=== PATIENT | female | born 1980 | race Caucasian/White ===

== ENCOUNTER 2023-07-27 17:35 | Emergency (ER) | payer BC, SELFPAY ==
[2023-07-27 17:36] VITALS: BP 145/78; PULSE 71; RESP 18; TEMP 36.1; O2SAT 98; BMI 26.0
[2023-07-27 18:22] VITALS: RESP 18; O2SAT 99
--- NOTE | 2023-07-27 18:24 | ED.RN ---
pt c/o of dizziness off and on today. pt also c/o of shortness of breath stating I feel like my face has so much pressure
[2023-07-27 18:25] LABS: Absolute Lymphocyte Count 2.35 X10^3/uL (0.83-4.51); Absolute Neutrophil Count 9.6 X10^3/uL (2.0-7.7); Basophil# 0.05 X10^3/uL; Basophil% 0.4 % (0-1); Eosinophil# 0.07 X10^3/uL; Eosinophils% 0.6 % (0-5); Hematocrit 42.8 % (37-47); Hemoglobin 14.4 g/dL (12.0-15.0); Lymphocyte # 2.35 X10^3/ul (0.83-4.51); Lymphocyte % 18.7 % (19-41); Mean Corp Hgb Conc 33.6 g/dL (32-36); Mean Corpuscular Hgb 29.9 pg (27.0-32.0); Mean Corpuscular Volume 88.8 fL (81-99); Mean Platelet Vol. 9.9 fl (6.2-12.0); Monocyte# 0.48 X10^3/uL; Monocyte% 3.8 % (0-10); NRBC Flagged by Analyzer 0 % (0-5); Neutrophil # 9.58 X10^3/uL (2.7-7.7); Neutrophil % 75.9 % (47-70); Platelet Count 293 K/mm3 (150-450); RBC Distribution Width CV 12.1 % (11.6-14.6); RBC Distribution Width SD 39.2 fl (35.1-43.9); Red Blood Count 4.82 M/mm3 (4.2-5.4); White Blood Count 12.6 K/mm3 (4.4-11.0)
[2023-07-27 18:40] LABS: Anion Gap 12 (5-15); BUN 18 mg/dL (7-18); BUN/Creat Ratio 22.9 RATIO (10-20); Calcium,Total 9.4 mg/dL (8.5-10.1); Chloride 101 mmol/L (98-107); Creatinine, Serum 0.79 mg/dL (0.55-1.02); EST Glomerular Filtration Rate 85 mL/min (>60); Est Glom Filt Rate - Afr Amer 102 mL/min (>60); Estimated Creatinine Clearance 93.97 ml/min; Glucose 128 mg/dL (74-106); Potassium 3.7 mmol/L (3.5-5.1); Sodium Level 135 mmol/L (136-145)
--- NOTE | 2023-07-27 18:43 | EDS_ITS ---
HPI <AUTUMN Kinsey - Last Filed: 07/27/23 21:22> History of Present Illness Chief Complaint: Shortness of Breath Narrative Narrative: Patient presenting today due to lightheadedness and occasional shortness of breath that she has had over the past several days. There have been a few occasions where she felt like she was going to pass out. She also reports that today her face has felt tingly intermittently. She is currently taking a prednisone taper for poison oak. She went to her PCPs office on Friday and had an additional Kenalog shot. She thinks that since around the time of having that shot she has felt, off. She denies any personal cardiac history, fevers, chills, chest pain, abdominal pain, nausea, and vomiting. PE Risk Factors: Negative for Cancer, OCP + Smoking + > 35, Prior DVT or PE, Recent immobilization, Recent surgery or Recent travel PFSH <AUTUMN Kinsey - Last Filed: 07/27/23 21:22> [facility] Home Medications amoxicillin 500 mg capsule 500 mg PO Q8H ##30 05/04/13 [Rx Last Taken Unknown] vits,calcium no.78-iron fumarate-folic acid 29 mg-1 mg tablet (Prenatabs FA) 1 tab PO DAILY 05/04/13 [History Last Taken Unknown] Allergy/AdvReac Type Severity Reaction Status Date / Time aspirin AdvReac Vomiting Verified 07/27/23 17:36 Social History Smoking Status: Former smoker ROS <AUTUMN Kinsey - Last Filed: 07/27/23 21:22> ROS ED Constitutional Constitutional ED: Denies chills or fever(s) Cardiovascular Cardiovascular: Denies chest pain or palpitations Respiratory/Chest Respiratory/Chest: Reports dyspnea; Denies cough Gastrointestinal Gastrointestinal: Denies abdominal pain, nausea or vomiting Musculoskeletal Musculoskeletal: Denies arthralgias or myalgias Integumentary Denies rash Neurologic Neurologic: Denies weakness EXAM <AUTUMN Kinsey - Last Filed: 07/27/23 21:22> Physical Exam Const Vital Signs: 07/27/23 17:36 07/27/23 18:22 07/27/23 18:22 Temperature 97 F L Temperature Source Temporal Pulse Rate 71 Respiratory Rate 18 18 Respiratory Effort Respiratory Depth Respiratory Pattern Blood Pressure 145/78 H Blood Pressure Mean 100 Pulse Ox 98 99 Oxygen Delivery Method Room Air Room Air Room Air 07/27/23 18:22 07/27/23 19:33 07/27/23 20:42 Temperature 97.9 F Temperature Source Pulse Rate 59 L 59 L Respiratory Rate 16 25 H Respiratory Effort Short of Breath Respiratory Depth Normal Respiratory Pattern Normal Blood Pressure 136/86 H 124/86 H Blood Pressure Mean 102 98 Pulse Ox 98 97 Oxygen Delivery Method Room Air Room Air Positive well nourished, well developed and no apparent distress General Appearance ED: well developed HEENT Reports normocephalic and head/scalp atraumatic Mouth ED: Yes moist mucous membranes normal Eyes PERRL and EOMs intact bilaterally Neck full ROM and supple Chest Wall inspection of chest normal Resp normal respiratory effort and clear to auscultation bilaterally Cardio regular rate and regular rhythm GI soft to palpation, non-tender, non-distended and no masses Back/Spine normal ROM and normal to inspection Extremity normal to inspection and full ROM Neuro oriented x3, CN's II-XII intact bilaterally, moves all extremities, no focal motor deficits and no sensory deficits noted Sensorium / Orientation: awake and alert Psych mental status grossly normal and thought process normal Skin Skin Narrative: Faint erythemic rash to the bilateral thighs <Dr. Marcus Gamboa DO - Last Filed: 07/27/23 22:10> Physical Exam Const Vital Signs: 07/27/23 17:36 07/27/23 18:22 07/27/23 18:22 Temperature 97 F L Temperature Source Temporal Pulse Rate 71 Respiratory Rate 18 18 Respiratory Effort Respiratory Depth Respiratory Pattern Blood Pressure 145/78 H Blood Pressure Mean 100 Pulse Ox 98 99 Oxygen Delivery Method Room Air Room Air Room Air 07/27/23 18:22 07/27/23 19:33 07/27/23 20:42 Temperature 97.9 F Temperature Source Pulse Rate 59 L 59 L Respiratory Rate 16 25 H Respiratory Effort Short of Breath Respiratory Depth Normal Respiratory Pattern Normal Blood Pressure 136/86 H 124/86 H Blood Pressure Mean 102 98 Pulse Ox 98 97 Oxygen Delivery Method Room Air Room Air MDM <Laine Apodaca PA - Last Filed: 07/27/23 21:22> MDM MDM Narrative Medical decision making narrative: Patient is well-appearing and in no acute distress, her vitals are unremarkable. She is concerned that the prednisone could be making her feel this way, she noticed the symptoms after she received the Kenalog shot on Friday. Cardiac workup obtained. She has nonspecific leukocytosis which could be attributed to the prednisone. I did evaluate her rash, it is faint and does seem to be clearing to her legs. No signs of infection. Chest x-ray negative for any acute findings. She is PERC negative, low suspicion for PE. She is almost done with her prednisone and has 2 more days. I did encourage that she follow-up with her PCP, return instructions discussed. She will be discharged home in stable condition. Lab Data Attestation: I reviewed the patient's lab results. Lab results narrative: WBC 12.6, sodium 135 Labs: Laboratory Results - last 24 hr 07/27/23 18:18 WBC 12.6 H RBC 4.82 Hgb 14.4 Hct 42.8 MCV 88.8 MCH 29.9 MCHC 33.6 RDW Std Deviation 39.2 RDW Coeff of [place] 12.1 Plt Count 293 MPV 9.9 Immature Gran % (Auto) 0.600 Neut % (Auto) 75.9 H Lymph % (Auto) 18.7 L Will % (Auto) 3.8 Eos % (Auto) 0.6 Baso % (Auto) 0.4 Absolute Neuts (auto) 9.6 H Absolute Lymphs (auto) 2.35 Nucleated RBC % 0 Sodium 135 L Potassium 3.7 Chloride 101 Carbon Dioxide 22.0 Anion Gap 12 BUN 18 Creatinine 0.79 Estim Creat Clear Calc 93.97 Est GFR (MDRD) Af Amer 102 Est GFR (MDRD) Non-Af 85 BUN/Creatinine Ratio 22.9 H Glucose 128 H Calcium 9.4 Troponin I High Sens < 3 L Radiography X-Ray: Read by ED Physician Diagnostic Testing: Clinical Impression(s) from Imaging Studies Chest X-Ray 07/27/23 19:05 IMPRESSION: No radiographic evidence of acute cardiopulmonary disease. Electronically Signed: Lorne Alvarez MD at 19:37 EDT , EKG Initial EKG: Comments: 57 bpm, sinus bradycardia, no ST elevation, reviewed and interpreted by attending ED physician <Dr. Marcus Gamboa, DO - Last Filed: 07/27/23 22:10> [facility] Narrative Medical decision making narrative: Patient is well-appearing and in no acute distress, her vitals are unremarkable. She is concerned that the prednisone could be making her feel this way, she noticed the symptoms after she received the Kenalog shot on Friday. Cardiac workup obtained. She has nonspecific leukocytosis which could be attributed to the prednisone. I did evaluate her rash, it is faint and does seem to be clearing to her legs. No signs of infection. Chest x-ray negative for any acute findings. She is PERC negative, low suspicion for PE. She is almost done with her prednisone and has 2 more days. I did encourage that she follow-up with her PCP, return instructions discussed. She will be discharged home in stable condition. ED attending note: I evaluated the patient in conjunction with the KORIN. I agree with his/her statements and above findings. I have personally performed a face to face a ssessment of the patient and have reviewed the KORIN Note. I performed a substantive portion of the visit including all aspects of the following. I personally saw the patient performed chart review, physical exam, reviewed labs, imaging (if obtained), and formulated a treatment and management plan. This note was generated with eTelemetry dictation software. It may contain incorrect words, spelling, and punctuation that were not noted in review of the chart prior to signing. Lab Data Labs: Laboratory Results - last 24 hr 07/27/23 18:18 WBC 12.6 H RBC 4.82 Hgb 14.4 Hct 42.8 MCV 88.8 MCH 29.9 MCHC 33.6 RDW Std Deviation 39.2 RDW Coeff of [place] 12.1 Plt Count 293 MPV 9.9 Immature Gran % (Auto) 0.600 Neut % (Auto) 75.9 H Lymph % (Auto) 18.7 L Will % (Auto) 3.8 Eos % (Auto) 0.6 Baso % (Auto) 0.4 Absolute Neuts (auto) 9.6 H Absolute Lymphs (auto) 2.35 Nucleated RBC % 0 Sodium 135 L Potassium 3.7 Chloride 101 Carbon Dioxide 22.0 Anion Gap 12 BUN 18 Creatinine 0.79 Estim Creat Clear Calc 93.97 Est GFR (MDRD) Af Amer 102 Est GFR (MDRD) Non-Af 85 BUN/Creatinine Ratio 22.9 H Glucose 128 H Calcium 9.4 Troponin I High Sens < 3 L Radiography Diagnostic Testing: Clinical Impression(s) from Imaging Studies Chest X-Ray 07/27/23 19:05 IMPRESSION: No radiographic evidence of acute cardiopulmonary disease. Electronically Signed: Lorne Alvarez MD at 19:37 EDT Reading Location ID and State: [facility] / [place] , Service support , Discharge Plan Triage Chief Complaint: Shortness of Breath ED Midlevel Provider: Laine Apodaca ED Provider: Marcus Gamboa Dx/Rx/DC Orders Clinical Impression: Shortness of breath, Light-headedness Instructions: ED Dizziness, Uncertain Cause, ED Dyspnea Prescriptions: No Action vit,[id number] [Prenatabs FA] 1 TABLET tablet 1 tab PO DAILY amoxicillin 500 MG capsule 500 mg PO Q8H Qty: 30 0RF Primary Care Provider: Care Physician,No Primary Referrals: Care Physician,No Primary [Primary Care Provider] - Activity Restrictions/Additional Instructions: Follow-up with your PCP and return for any worsening of your symptoms. Disposition Disposition: Home, Self Care Discharge Date/Time: 07/27/23 20:45
--- NOTE | 2023-07-27 19:05 | RAD_ITS ---
EXAM: XR CHEST, 1 VIEW CLINICAL INDICATION: SOB TECHNIQUE: Frontal view of the chest. COMPARISON: No relevant prior studies available. FINDINGS: LUNGS AND PLEURAL SPACES: Unremarkable. No consolidation or edema. No pneumothorax. No effusion. HEART: Unremarkable. Cardiac silhouette not enlarged. MEDIASTINUM: Central airways and mediastinal contour are unremarkable. BONES/JOINTS: Unremarkable. No acute fracture. SOFT TISSUES: Unremarkable. RAD/Chest 1 View (Portable) IMPRESSION: No radiographic evidence of acute cardiopulmonary disease. Electronically Signed: Lorne Alvarez MD at 19:37 EDT ,
[2023-07-27 19:33] VITALS: BP 136/86; PULSE 59; RESP 16; O2SAT 98
[2023-07-27 20:06] LABS: Troponin-I HS < 3 pg/mL (3.0-54.0)
[2023-07-27 20:42] VITALS: BP 124/86; PULSE 59; RESP 25; TEMP 36.6; O2SAT 97
== END 2023-07-27 20:45 | disposition home or self-care (01) ==
PROVIDERS: Physician Assistant; Emergency Provider Emergency Medicine; Visit Provider Emergency Medicine
DX: R06.02 Shortness of breath (principal); Z87.891 Personal history of nicotine dependence; R42 Dizziness and giddiness
CPT/HCPCS: 71045; 80048; 84484; 85025; 93005; 99283; A4216

== ENCOUNTER 2024-11-20 21:14 | Emergency (ER) | payer BC, SELFPAY ==
[2024-11-20 21:15] VITALS: BP 148/81; PULSE 77; RESP 20; TEMP 35.8; O2SAT 99; BMI 25.4
--- OUTSIDE RECORDS SUMMARY | 2024-11-20 21:56 | XMS RPT_ITS | CCD ---
Author Organization [facility] ion Partnership [facility] Care Team Providers Care Oyster Worker Name Role Phone SHAI DO, DR BRAD Healy Primary Care Physician Shai DO, Brad Brambila Primary Care Provider SHAI DO, DR BRAD Healy Primary Care Physician SHAI DO, DR BRAD Healy Primary Care Physician Shai DO, Brad Brambila Primary Care Provider SHAI, BRAD BRAMBILA Primary Care Unavailable Marcus Gamboa Attending Unavailable Care Physician, No Primary Primary Care Unava COURTNEY Trevizo Attending Unavailable SHAI DO, DR BRAD Healy Primary Care Unavailshun e FERNIE RUBIO DO Attending Unavailab le SHAI DO, DR BRAD Healy Primary Care Unavailabl e FERNIE RUBIO DO Attending Unavailab le SHAI DO, DR BRAD Healy Primary Care Unavailabl e SHAI DO, DR BRAD Healy Primary Care UnavailPOP Das MD Attending Unavailable SHAI DO, DR BRAD Healy Primary Care Unavailabl e SHEROCK FERNIE CASTANEDA Attending Unavailab le Allergies Allergy Classification Reported Allergen(s) Allergy Type Date of Onset Reaction(s) Facility (11 sources) Aspirin; Translations: [aspirin] Drug Allergy 01-10-2016 [facility] (1 source) Aspirin Drug Allergy 07-27-2023 [facility] Repository Medications Current Medications Medication Drug Class(es) Dates Sig (Normalized) Sig (Original) acetaminophen 325 mg / oxyCODONE hydrochloride 5 mg oral tablet (1 source) Opioid Agonist Start: 12-04-2023 End: 12-06-2023 take 1 tablet by mouth every four hours as needed for pain Percocet 5 mg-325 mg oral tablet Dose = 1 tab(s), Oral, q4h, PRN for pain, X 2 day(s), # 10 tab(s), 0 Refill(s), Pharmacy: [facility]/pharmacy #[id number], Status post endometrial ablation, 167.6, cm, 12/04/23 7:12:00 EDT, Height, 72, kg, 12/04/23 7:12:00 EDT, Dosing Weight Start Date: 12/04/23 Stop Date: 12/06/23 Status: Ordered amoxicillin 500 mg oral capsule (1 source) Penicillin-class Antibacterial Start: 05-04-2013 take 500 mg by mouth every eight hours Amoxicillin Active 500 MG PO Q8H May 04, 2013 1:00am amoxicillin 875 mg / clavulanate 125 mg oral tablet (1 source) Penicillin-class Antibacterial Start: 05-07-2022 End: 05-14-2022 take 1 tablet by mouth twice daily amoxicillin-clavu lanic acid (AUGMENTIN) 875-125 mg per tablet Take 1 tablet by mouth twice daily for 7 days. 14 tablet 0 05/07/2022 05/14/2022 Active Comment on above: Take 1 tablet by dakota twice daily for 7 days. 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 40 capsule 0 01/12/2019 Active Comment on above: Take 1 capsule by mo ut three times daily as needed. Ethinyl Estradiol / Ferrous fumarate / Norethindrone (2 sources) Estrogen Start: 04-17-2022 take 1 tablet by mouth once daily BECK 24 FE 1 mg-20 mcg (24)/75 mg (4) take 1 tablet by mouth daily --OKAY TO SKIP PLACEBO TALBETS AND RESTART THE NEXT PACK ON DAY 24 0 04/17/2022 Active Comment on above: take 1 tablet by dakota th daily --OKAY TO SKIP PLACEBO TALBETS AND RESTART THE NEXT PACK ON DAY 24 12 hr guaiFENesin 600 mg extended release oral tablet (2 sources) Start: 01-12-2019 take 2 tablets by mouth twice daily guaiFENesin (MUCINEX) 600 mg 12 hr tablet Indications: Viral URI Take 2 tablets by mouth twice daily. 30 tablet 0 01/12/2019 Active Comment on above: Take 2 tablets by mo ut twice daily. ibuprofen 600 mg oral tablet (1 source) Nonsteroidal Anti-inflammatory Drug Start: 12-04-2023 ibuprofen 600 mg oral tablet Dose : 600 mg = 1 tab(s), Oral, QID, PRN as needed for pain, # 40 tab(s), 1 Refill(s), Pharmacy: [facility]/pharmacy #[id number], 167.6, cm, 12/04/23 7:12:00 EDT, Height, kg, 12/04/23 7:12:00 EDT, Dosing Weight Start Date: 12/04/23 Status: Ordered lidocaine hydrochloride 20 mg/ml mucous membrane topical solution (2 sources) Antiarrhythmic, Amide Local Anesthetic Start: 01-12-2019 lidocaine viscous (LIDOCAINE VISCOUS) 2 % solution Indications: Sore throat Gargle and spit 10-15mLs every 3-4 hours as need for throat discomfort. 120 mL 0 01/12/2019 Active Comment on above: Gargle and spit 10-1 5mLs every 3-4 hours as need for throat discomfort. predniSONE 10 mg oral tablet (2 sources) Start: 07-22-2023 predniSONE 10 mg oral tablet Dose : 10 mg = 1 tab(s), 0 Refill(s) Start Date: 07/22/23 Status: Ordered Start: 07-17-2023 End: 07-29-2023 predniSONE (DELTASONE) 10 mg tablet Indications: Rhus dermatitis Take 4 tabs daily x 3 days, then 3 tabs x 3 days, 2 tabs x 3 days, then 1 tab x3 days with food. 30 tablet 0 07/17/2023 07/29/2023 Active Vkrmkcjk-Vx-Rcx-Fe-FA ORAL Tab (2 sources) Start: 07-12-2006 take 1 tablet by mouth once daily Pdexkmrd-Nm-Vvb-Fe-FA ORAL Tab TAKE ONE DAILY 0 07/12/2006 Active Comment on above: TAKE ONE DAILY Vit,Syzz19-Jiog-Qudnr (Prenatabs Fa ) 1 TABLET tablet (1 source) Start: 05-04-2013 take 1 tablet by mouth once daily Vit,Gkdw41-Zoyo-Epghn (Prenatabs Fa ) 1 TABLET tablet Active 1 TABLET PO DAILY May 04, 2013 1:00am triamcinolone acetonide 1 mg/ml topical cream (4 sources) Corticosteroid Start: 07-22-2023 triamcinolone 0.1% topical cream Apply 1 morena, APPLY SPARINGLY TO AFFECTED AREAS 3 TIMES DAILY FOR 10 DAYS FOR RASH OR ITCH Start Date: 07/22/23 Status: Ordered Start: 07-17-2023 End: 07-27-2023 triamcinolone acetonide (NICHELLE ALOG) 0.1 % cream Indications: Rhus dermatitis Apply 1 application to affected area three times a day for 10 days. Apply sparingly to area for rash/itching. 80 g 0 07/17/2023 07/27/2023 Active Start: 11-25-2017 triamcinolone (KENALOG) 0.025 % cream Indications: Dermatitis due to plants, including poison mesha, sumac, and oak Apply 1 application to affected area twice daily. 30 g 0 11/25/2017 Active Comment on above: Apply 1 application to affected area twice daily. Problems Active Problems Problem Classification Problem Date Documented Date Episodic/Chronic Allergic reactions (1 source) Contact dermatitis due to Genus Toxicodendron; Translations: [Unspecified contact dermatitis due to plants, except food] 07-17-2023 Episodic Conditions associated with dizziness or vertigo (1 source) Lightheadedness; Translations: [Dizziness and giddiness] 07-27-2023 Episodic Essential hypertension (1 source) Essential hypertension; Translations: [Essential (primary) hypertension] Onset: 07-07-2022 Chronic Other connective tissue disease (1 source) Muscle pain; Translations: [Myalgia, unspecified site] Onset: 07-07-2022 Episodic Other female genital disorders (1 source) Abnormal uterine bleeding; Translations: [Abnormal uterine and vaginal bleeding, unspecified] Onset: 12-04-2023 Chronic Other lower respiratory disease (1 source) Dyspnea; Translations: [Shortness of breath] 07-27-2023 Episodic Other lower respiratory disease (1 source) Shortness of breath; Translations: [Shortness of breath] Onset: 07-31-2023 Episodic Other upper respiratory infections (1 source) Chronic sinusitis; Translations: [Chronic sinusitis, unspecified] Chronic Other upper respiratory infections (1 source) Sore throat symptom; Translations: [Acute pharyngitis, unspecified] Episodic Residual codes; unclassified (1 source) Past history of procedure; Translations: [Other specified postprocedural states] Onset: 12-04-2023 Episodic Past or Other Problems Problem Classification Problem Date Documented Da te Episodic/Chronic Other and delivery including normal (2 sources) Normal ; Translations: [Encounter for supervision of other normal , unspecified trimester] Onset: 07-12-2006 07-12-2006 Episodic Results Test Name Value Interpretation Reference Range Facility .Auto Diffon 12-04-2023 Basophil, Absolute 0.0 10 3/mcL Normal 0.0-0.2 [facility] Comment on above: Performed By: #### A GUSTAVO, CBC, GFR, BMP, ADIFF #### [address] [address] Basophils/100 WBC (Bld) 0.7 % Normal 0.0-2.5 [facility] Comment on above: Performed By: #### A GUSTAVO, CBC, GFR, BMP, ADIFF #### [facility] [address] [place], [place] [address] Eosinophil, Absolute 0.1 10 3/mcL Normal 0.0-0.4 [facility] Comment on above: Performed By: #### A GUSTAVO, CBC, GFR, BMP, ADIFF #### [facility] [address] [place], [place] [address] Eosinophils/100 WBC (Bld) 1.7 % Normal 0.0-7.0 [facility] Comment on above: Performed By: #### A GUSTAVO, CBC, GFR, BMP, ADIFF #### [address] [address] Lymphocyte, Absolute 2.2 10 3/mcL Normal 0.8-3.9 [facility] Comment on above: Performed By: #### A GUSTAVO, CBC, GFR, BMP, ADIFF #### [address] [address] Lymphocytes/100 WBC (Bld) 35.1 % Normal 10.0-50.0 [facility] Comment on above: Performed By: #### A GUSTAVO, CBC, GFR, BMP, ADIFF #### [address] [address] Monocyte, Absolute 0.5 10 3/mcL Normal 0.2-1.0 [facility] Comment on above: Performed By: #### A GUSTAVO, CBC, GFR, BMP, ADIFF #### [address] [address] Monocytes/100 WBC (Bld) 7.5 % Normal 1.7-13.0 [facility] Comment on above: Performed By: #### A GUSTAVO, CBC, GFR, BMP, ADIFF #### [address] [address] Neutrophils/100 WBC (Bld) 55.0 % Normal 37.0-80.0 [facility] Comment on above: Performed By: #### A GUSTAVO, CBC, GFR, BMP, ADIFF #### [address] [address] .GFRon 12-04-2023 GFR 89 ml/min/1.73sqm Normal [facility] Comment on above: Result Comment: GFR Population mean for , Non- Americans Ages 20-29 = 116 mL/min/1.73 sq.m. Ages 30-39 = 107 mL/min/1.73 sq.m. Ages 40-49 = 99 mL/min/1.73 sq.m. Ages 50-59 = 93 mL/min/1.73 sq.m. Ages 60-69 = 85 mL/min/1.73 sq.m. Ages 70+ = 75 mL/min/1.73 sq.m. Chronic Kidney Disease: Less than 60 mL/min/1.73 square meters End Stage Renal Disease: Less than 15 mL/min/1.73 square meters Performed By: #### A GUSTAVO, CBC, GFR, BMP, ADIFF #### [address] [address] GFR Non- 74 ml/min/1.73sqm Normal [facility] Comment on above: Result Comment: GFR Population mean for , Non- Americans Ages 20-29 = 116 mL/min/1.73 sq.m. Ages 30-39 = 107 mL/min/1.73 sq.m. Ages 40-49 = 99 mL/min/1.73 sq.m. Ages 50-59 = 93 mL/min/1.73 sq.m. Ages 60-69 = 85 mL/min/1.73 sq.m. Ages 70+ = 75 mL/min/1.73 sq.m. Chronic Kidney Disease: Less than 60 mL/min/1.73 square meters End Stage Renal Disease: Less than 15 mL/min/1.73 square meters Performed By: #### A GUSTAVO, CBC, GFR, BMP, ADIFF #### [address] [address] .NEUABSon 12-04-2023 Neutrophil, Absolute 3.5 10 3/mcL Normal 2.9-6.2 [facility] Comment on above: Performed By: #### A GUSTAVO, CBC, GFR, BMP, ADIFF #### [address] [address] BMPon 12-04-2023 BUN/Creatinine Ratio 21 ratio Normal 7-27 [facility] Comment on above: Performed By: #### A GUSTAVO, CBC, GFR, BMP, ADIFF #### [address] [address] Calcium [Mass/Vol] 9.1 mg/dL Normal 8.4-10.2 [facility] Comment on above: Performed By: #### A GUSTAVO, CBC, GFR, BMP, ADIFF #### [address] [address] Chloride [Moles/Vol] 104 mmol/L Normal 98-107 [facility] Comment on above: Performed By: #### A GUSTAVO, CBC, GFR, BMP, ADIFF #### [address] [address] CO2 [Moles/Vol] 28 mmol/L Normal 22-29 [facility] Comment on above: Performed By: #### A GUSTAVO, CBC, GFR, BMP, ADIFF #### [address] [address] Creatinine [Mass/Vol] 0.84 mg/dL Normal 0.55-1.02 [facility] Comment on above: Result Comment: Test ing performed on Siemens Dimension EXL analyzer using a modified kinetic Krish technique. Performed By: #### A GUSTAVO, CBC, GFR, BMP, ADIFF #### [address] [address] Electrolyte Balance 6.0 mEq/L Normal 4.0-15.0 [facility] Comment on above: Performed By: #### A GUSTAVO, CBC, GFR, BMP, ADIFF #### [address] [address] Glucose [Mass/Vol] 87 mg/dL Normal 70-105 [facility] Comment on above: Performed By: #### A GUSTAVO, CBC, GFR, BMP, ADIFF #### [address] [address] Potassium [Moles/Vol] 3.9 mmol/L Normal 3.5-5.1 [facility] Comment on above: Performed By: #### A GUSTAVO, CBC, GFR, BMP, ADIFF #### [address] [address] Sodium [Moles/Vol] 138 mmol/L Normal 136-145 [facility] Comment on above: Performed By: #### A GUSTAVO, CBC, GFR, BMP, ADIFF #### [address] [address] Urea nitrogen [Mass/Vol] 18 mg/dL Normal 7-18 [facility] Comment on above: Performed By: #### A GUSTAVO, CBC, GFR, BMP, ADIFF #### [address] [address] CBCon 12-04-2023 Erythrocyte distribution width (RBC) [Ratio] 12.6 % Normal 11.5-14.5 [facility] Comment on above: Performed By: #### A GUSTAVO, CBC, GFR, BMP, ADIFF #### [address] [address] Hematocrit (Bld) [Volume fraction] 40.5 % Normal 37.0-47.0 [facility] Comment on above: Performed By: #### A GUSTAVO, CBC, GFR, BMP, ADIFF #### [place] [address] Hgb 13.6 G/dL Normal 12.0-16.0 [facility] Comment on above: Performed By: #### A GUSTAVO, CBC, GFR, BMP, ADIFF #### [address] [address] MCH (RBC) [Entitic mass] 30.5 pg Normal 27.0-31.2 [facility] Comment on above: Performed By: #### A GUSTAVO, CBC, GFR, BMP, ADIFF #### [place] [address] MCHC 33.7 G/dL Normal 33.0-37.0 [facility] Comment on above: Performed By: #### A GUSTAVO, CBC, GFR, BMP, ADIFF #### [address] [address] MCV (RBC) [Entitic vol] 90.6 fL Normal 80.0-94.0 [facility] Comment on above: Performed By: #### A GUSTAVO, CBC, GFR, BMP, ADIFF #### [place] [id number] Platelet 220 10 3/mcL Normal 130-400 [facility] Comment on above: Performed By: #### A GUSTAVO, CBC, GFR, BMP, ADIFF #### [place] [address] Platelet mean volume (Bld) [Entitic vol] 8.2 fL Normal 7.4-10.4 [facility] Comment on above: Performed By: #### A GUSTAVO, CBC, GFR, BMP, ADIFF #### [place] [address] RBC 4.47 10 6/mcL Normal 4.20-5.40 [facility] Comment on above: Performed By: #### A GUSTAVO, CBC, GFR, BMP, ADIFF #### [place] [address] WBC 6.4 10 3/mcL Normal 4.6-10.8 [facility] Comment on above: Performed By: #### A GSUTAVO, CBC, GFR, BMP, ADIFF #### [place] [address] LABORATORYOrdered By: SYSTEM SYSTEM on 12-04-2023 Basophils (Bld) [#/Vol] 0.0 103/mcL Normal 0.0 - 0.2 10^3/mcL AO Workflow SS Basophils/100 WBC (Bld) 0.7 % Normal 0.0 - 2.5 % AO Workflow SS Calcium [Mass/Vol] 9.1 mg/dL Normal 8.4 - 10. 2 mg/dL AO ADM SS Chloride [Moles/Vol] 104 mmol/L Normal 98 - 10 7 mmol/L AO ADM SS CO2 [Moles/Vol] 28 mmol/L Normal 22 - 29 mmol/L AO ADM SS Creatinine [Mass/Vol] 0.84 mg/dL Normal 0.55 - 1.02 mg/dL AO ADM SS Comment on above: Interpretive Data: T esting performed on Siemens Dimension EXL analyzer using a modified kinetic Krish technique. Electrolyte Balance 6.0 mEq/L Normal 4.0 - 15 .0 mEq/L AO ADM SS Eosinophil, Absolute 0.1 103/mcL Normal 0.0 - 0 .4 10^3/mcL AO Workflow SS Eosinophils/100 WBC (Bld) 1.7 % Normal 0.0 - 7.0 % AO Workflow SS Erythrocyte distribution width (RBC) [Ratio] 12.6 % Normal 11.5 - 14.5 % AO Workflow SS GFR/1.73 sq M.predicted among blacks MDRD (S/P/Bld) [Vol rate/Area] 89 ml/min/1.73sqm Invalid Interpretation Code AO Chemistry S Comment on above: Interpretive Data: GFR Population mean for , Non- Americans Ages 20-29 = 116 mL/min/1.73 sq.m. Ages 30-39 = 107 mL/min/1.73 sq.m. Ages 40-49 = 99 mL/min/1.73 sq.m. Ages 50-59 = 93 mL/min/1.73 sq.m. Ages 60-69 = 85 mL/min/1.73 sq.m. Ages 70+ = 75 mL/min/1.73 sq.m. Chronic Kidney Disease: Less than 60 mL/min/1.73 square meters End Stage Renal Disease: Less than 15 mL/min/1.73 square meters GFR/1.73 sq M.predicted among non-blacks MDRD (S/P/Bld) [Vol rate/Area] 74 ml/min/1.73sqm Invalid Interpretation Code AO Chemistry S Comment on above: Interpretive Data: GFR Population mean for , Non- Americans Ages 20-29 = 116 mL/min/1.73 sq.m. Ages 30-39 = 107 mL/min/1.73 sq.m. Ages 40-49 = 99 mL/min/1.73 sq.m. Ages 50-59 = 93 mL/min/1.73 sq.m. Ages 60-69 = 85 mL/min/1.73 sq.m. Ages 70+ = 75 mL/min/1.73 sq.m. Chronic Kidney Disease: Less than 60 mL/min/1.73 square meters End Stage Renal Disease: Less than 15 mL/min/1.73 square meters Glucose [Mass/Vol] 87 mg/dL Normal 70 - 105 mg/dL AO ADM SS Hematocrit (Bld) [Volume fraction] 40.5 % Normal 37.0 - 47.0 % AO Workflow SS Hemoglobin (Bld) [Mass/Vol] 13.6 G/dL Normal 12.0 - 16.0 G/dL AO Workflow SS Lymphocytes (Bld) [#/Vol] 2.2 103/mcL Normal 0.8 - 3.9 10^3/mcL AO Workflow SS Lymphocytes/100 WBC (Bld) 35.1 % Normal 10.0 - 50.0 % AO Workflow SS MCH (RBC) [Entitic mass] 30.5 pg Normal 27.0 - 31.2 pg AO Workflow SS MCHC 33.7 G/dL Normal 33.0 - 37.0 G/dL AO Workflow SS MCV (RBC) [Entitic vol] 90.6 fL Normal 80.0 - 94.0 fL AO Workflow SS Monocytes (Bld) [#/Vol] 0.5 103/mcL Normal 0.2 - 1.0 10^3/mcL AO Workflow SS Monocytes/100 WBC (Bld) 7.5 % Normal 1.7 - 13.0 % AO Workflow SS Neutrophils (Bld) [#/Vol] 3.5 103/mcL Normal 2.9 - 6.2 10^3/mcL AO Workflow SS Neutrophils/100 WBC (Bld) 55.0 % Normal 37.0 - 80.0 % AO Workflow SS Platelet mean volume (Bld) [Entitic vol] 8.2 fL Normal 7.4 - 10.4 fL AO Workflow SS Platelets (Bld) [#/Vol] 220 103/mcL Normal 130 - 400 10^3/mcL AO Workflow SS Potassium [Moles/Vol] 3.9 mmol/L Normal 3.5 - 5.1 mmol/L AO ADM SS RBC (Bld) [#/Vol] 4.47 106/mcL Normal 4.20 - 5.4 0 10^6/mcL AO Workflow SS Sodium [Moles/Vol] 138 mmol/L Normal 136 - 145 mmol/L AO ADM SS Urea nitrogen [Mass/Vol] 18 mg/dL Normal 7 - 18 mg/dL AO ADM SS Urea nitrogen/Creatinine [Mass ratio] 21 ratio Normal 7 - 27 ratio AO ADM SS WBC (Bld) [#/Vol] 6.4 103/mcL Normal 4.6 - 10.8 10^3/mcL AO Workflow SS LABORATORYOrdered By: Sumi Keating on 12-04-2023 HCG ( test) Ql Negative (12/04/23 7:17 AM) Normal AO Manual Urine SS test (u) int Not detected Invalid Interpretation Code AO Manual Urine SS PREGUon 12-04-2023 HCG ( test) Ql (U) Negative Normal [facility] Comment on above: Performed By: #### P REGU #### [place] [id number] [place], [place] [address] test (u) int Not detected Invalid Interpretation Code [facility] Comment on above: Performed By: #### P REGU #### [address] [address] US PELVIS NON-OB W/TRANSVAGI NALon 09-30-2023 US PELVIS NON-OB W/TRANSVAGINAL ORIGINAL EXAMINATION: TRANSVAGINAL PELVIC ULTRASOUND 09/29/2023 TECHNIQUE: Transvaginal and transabdominal pelvic ultrasound was performed. Images were reviewed and permanently stored in an archive. COMPARISON: Pelvic ultrasound 01/22/2019 HISTORY: ORDERING SYSTEM PROVIDED HISTORY: Reason for Exam: ABNORMAL UTERINE AND VAGINAL BLEEDING FINDINGS: Uterus: Uterus measures 8.5 x 5.4 x 6.6 cm and demonstrates normal myometrial echotexture. 1.6 x 1.3 x 1.3 cm fibroid seen at the fundus. Endometrial stripe: Endometrial stripe measures 5.2 mm and is within normal limits. Right Ovary: Right ovary measures 1.8 x 1.2 x 1.7 cm. There is normal Doppler flow. Left Ovary: Left ovary measures 5.1 x 3.6 x 5.6 cm. Large 4.5 x 3.5 x 4.5 cm anechoic cyst with no internal vascularity present. A thin septation is noted at its superoposterior aspect. There is normal Doppler flow. Free Fluid: Small amounts of free fluid are noted at the posterior cul de sac. IMPRESSION: 1. Fibroid uterus. 2. 4.5 cm left ovarian cyst. No further imaging is required. I have personally reviewed the images of this examination and agree with the resident's findings and interpretation. Interpreted by: Ld Saxena DO Preliminary Report By: Allan Vanegas Electronically signed By Ld Saxena DO Dictated Date: 09/30/2023 10:35:53 AM Prelim Date: 09/30/2023 11:30:40 AM Sign Date: 09/30/2023 11:30:40 AM Ordering Provider: COURTNEY Calderon [facility] ([place]) Absolute lymphocyte countOrd ered By: Marcus Gamboa on 07-27-2023 Lymphocytes Auto (Unsp spec) [#/Vol] 2.35 10*3/uL 0.83-4.51 [facility] Automated lymphocyte count a s percentage of total leukocytesOrdered By: Marcus Gamboa on 07-27-2023 Lymphocytes/100 WBC Auto (Unsp spec) 18.7 % 19-41 [facility] Basic Metabolic Profile (BMP )on 07-27-2023 BUN/CRE 22.9 RATIO High 10-20 [facility] Comment on above: Performed By: #### L [id number] #### [facility] [address] [place], [address] CA,Total 9.4 mg/dL Normal 8.5-10.1 [facility] Comment on above: Performed By: #### L [id number] #### [facility] [address] [place], [address] Chloride [Moles/Vol] 101 mmol/L Normal 98-107 [facility] Comment on above: Performed By: #### L [id number] #### [facility] [address] [place], [address] CO2 [Moles/Vol] 22.0 mmol/L Normal 21.0-32.0 [facility] Comment on above: Performed By: #### L [id number] #### [facility] [address] [place], [address] Creatinine [Mass/Vol] 0.79 mg/dL Normal 0.55-1.02 [facility] Comment on above: Result Comment: The validity of the calculated GFR GFRAA in patients over 70 years has not been determined. Clinical correlation is essential. Performed By: #### L [id number] #### [facility] [address] [place], [address] ECRCL 93.97 ml/min Normal [facility] Comment on above: Performed By: #### L [id number] #### [facility] [address] [place], [address] EST GFR - AA 102 mL/min Normal >60 [facility] Comment on above: Result Comment: Afri can [place]is[place] GFR Calc Performed By: #### L [id number] #### [facility] [address] [place], [address] GAP 12 Normal 5-15 [facility] Comment on above: Performed By: #### L [id number] #### [facility] [address] [place], [address] GFR/1.73 sq M.predicted among non-blacks MDRD (S/P/Bld) [Vol rate/Area] 85 mL/min/{1.73_m2} Normal >60 [facility] Comment on above: Result Comment: Non- GFR Calc Performed By: #### L [id number] #### [facility] [address] [place], [address] Glucose [Mass/Vol] 128 mg/dL High 74-106 [facility] Comment on above: Result Comment: Fast ing Glucose result greater than or equal to 126 mg/dL suggests DIABETES MELLITUS per A.D.A. criteria. Performed By: #### L 500.2500 #### [facility] [address] [place], [address] Potassium [Moles/Vol] 3.7 mmol/L Normal 3.5-5.1 [facility] Comment on above: Performed By: #### L [id number] #### [facility] [address] [place], [address] Sodium [Moles/Vol] 135 mmol/L Low 136-145 [facility] Comment on above: Performed By: #### L [id number] #### [facility] [address] [place], [address] Urea nitrogen [Mass/Vol] 18 mg/dL Normal 7-18 [facility] Comment on above: Performed By: #### L [id number] #### [facility] [address] [place], [address] Basophil percentageOrdered B y: Marcus Gamboa on 07-27-2023 Basophils/100 WBC (Bld) 0.4 % 0-1 [facility] Chloride [Moles/Vol] 101 mmol/L 98-107 [facility] Eosinophils/100 WBC (Bld) 0.6 % 0-5 [facility] [place] Glucose [Mass/Vol] 128 mg/dL 74-106 [facility] Comment on above: Fasting Glucose resu lt greater than or equal to 126 mg/dL suggests DIABETES MELLITUS per A.D.A. criteria. Hemoglobin (Bld) [Mass/Vol] 14.4 g/dL 12.0-15.0 [facility] Monocytes/100 WBC (Bld) 3.8 % 0-10 [facility] Neutrophils (Bld) [#/Vol] 9.6 10*3/uL 2.0-7.7 [facility] Neutrophils/100 WBC (Bld) 75.9 % 47-70 [facility] Potassium [Moles/Vol] 3.7 mmol/L 3.5-5.1 [facility] Sodium [Moles/Vol] 135 mmol/L 136-145 [facility] WBC (Bld) [#/Vol] 12.6 10*3/uL 4.4-11.0 [facility] CBC W/Diff, Automatedon 07-15 Absolute Lymph 2.35 X10 3/uL Normal 0.83-4.51 [facility] Comment on above: Performed By: #### L 100.0100 #### [facility] Laboratory [address] [place], [place], [address] Absolute Neut 9.6 X10 3/uL High 2.0-7.7 [facility] Comment on above: Performed By: #### L 100.0100 #### [facility] Laboratory [address] [place], [address] Basophils/100 WBC (Bld) 0.4 % Normal 0-1 [facility] Comment on above: Performed By: #### L 100.0100 #### [facility] [address] [place], [address] Eosinophils/100 WBC (Bld) 0.6 % Normal 0-5 [facility] Comment on above: Performed By: #### L 100.0100 #### [facility] Laboratory [address] [place], [address] Erythrocyte distribution width (RBC) [Ratio] 12.1 % Normal 11.6-14.6 [facility] Comment on above: Performed By: #### L 100.0100 #### [facility] Laboratory [facility], [address] Hematocrit (Bld) [Volume fraction] 42.8 % Normal 37-47 [facility] Comment on above: Performed By: #### L 100.0100 #### [facility] [address] [place], [address] Hemoglobin (Bld) [Mass/Vol] 14.4 g/dL Normal 12.0-15.0 [facility] Comment on above: Performed By: #### L 100.0100 #### [facility] [address] [place], [address] IG% 0.600 Normal 0.0-0.9 [facility] Comment on above: Result Comment: IG% - Immature Granulocytes (promyelocytes, myelocytes and metamyelocytes) > 1% indicates that a LEFT SHIFT is Present. Performed By: #### L 100.0100 #### [facility] [address] [place], [address] Lymphocytes/100 WBC (Bld) 18.7 % Low 19-41 [facility] Comment on above: Performed By: #### L 100.0100 #### [facility] [address] [place], [address] MCH (RBC) [Entitic mass] 29.9 pg Normal 27.0-32.0 [facility] Comment on above: Performed By: #### L 100.0100 #### [facility] Laboratory [address] [place], [address] MCHC (RBC) [Mass/Vol] 33.6 g/dL Normal 32-36 [facility] Comment on above: Performed By: #### L 100.0100 #### [facility] [address] [place], [address] MCV (RBC) [Entitic vol] 88.8 fL Normal 81-99 [facility] Comment on above: Performed By: #### L 100.0100 #### [facility] [address] [place], [address] Monocytes/100 WBC (Bld) 3.8 % Normal 0-10 [facility] Comment on above: Performed By: #### L 100.0100 #### [facility] [address] [place], [address] Neutrophils/100 WBC (Bld) 75.9 % High 47-70 [facility] Comment on above: Performed By: #### L 100.0100 #### [facility] [address] [place], [address] Nucleated RBC (Bld) [#/Vol] 0 10*3/uL Normal 0-5 [facility] Comment on above: Performed By: #### L 100.0100 #### [facility] [address] [place], [address] Platelet mean volume (Bld) [Entitic vol] 9.9 fL Normal 6.2-12.0 [facility] Comment on above: Performed By: #### L 100.0100 #### [facility] Laboratory [address] [place], [address] Platelets (Bld) [#/Vol] 293 10*3/uL Normal 150-450 [facility] Comment on above: Performed By: #### L 100.0100 #### [facility] [address] [place], [address] RBC (Bld) [#/Vol] 4.82 10*6/uL Normal 4.2-5.4 [facility] Comment on above: Performed By: #### L 100.0100 #### [facility] Laboratory [address] [place], [address] RDW SD 39.2 fl Normal 35.1-43.9 [facility] Comment on above: Performed By: #### L 100.0100 #### [facility] Laboratory [address] [place], [address] WBC (Bld) [#/Vol] 12.6 10*3/uL High 4.4-11.0 [facility] Comment on above: Performed By: #### L 100.0100 #### [facility] Laboratory [address] [place], [address] Chest 1 View (Portable)on Chest 1 View (Portable) [facility] Imaging Services [address] [place] [address] Chest 1 View (Portable) MR#: [id number] Acct: [id number] Name: MANJU SALDANA Rep #: [id number] : 1980 F 42 From: Lorne Leggett PCP: Care Physician,No Primary Status: REG ER Study: Chest 1 View (Portable) Date of Exam: 07/27/23 Exam# [id number] Ordering Dr: Laine Apodaca -[id number] EXAM: XR CHEST, 1 VIEW CLINICAL INDICATION: SOB TECHNIQUE: Frontal view of the chest. COMPARISON: No relevant prior studies available. FINDINGS: LUNGS AND PLEURAL SPACES: Unremarkable. No consolidation or edema. No pneumothorax. No effusion. HEART: Unremarkable. Cardiac silhouette not enlarged. MEDIASTINUM: Central airways and mediastinal contour are unremarkable. BONES/JOINTS: Unremarkable. No acute fracture. SOFT TISSUES: Unremarkable. RAD/Chest 1 View (Portable) IMPRESSION: No radiographic evidence of acute cardiopulmonary disease. Electronically Signed: Lorne Alvarez MD at 19:37 EDT , CC: AUTUMN Kinsey; No Primary Care Physician Banana Carrier: Signed Normal [facility] Determination of erythrocyte mean corpuscular volume (MCV)Ordered By: Marcus Gamboa on 07-27-2023 MCV (RBC) [Entitic vol] 88.8 fL 81-99 [facility] Emergency Department Summary on 07-27-2023 Emergency Department Summary [facility] Medical Records Department [address] [place] [address] Emergency Department Summary 07/27/23 MR#: [id number] Acct: [id number] Name: MANJU SALDANA Rep #: [id number] : 1980 42 From: Marcus Gamboa DO PCP: Care Physician,No Primary Status:DEP ER Location: ED HPI History of Present Illness Chief Complaint: Shortness of Breath Narrative Narrative: Patient presenting today due to lightheadedness and occasional shortness of breath that she has had over the past several days. There have been a few occasions where she felt like she was going to pass out. She also reports that today her face has felt tingly intermittently. She is currently taking a prednisone taper for poison oak. She went to her PCPs office on Friday and had an additional Kenalog shot. She thinks that since around the time of having that shot she has felt, off. She denies any personal cardiac history, fevers, chills, chest pain, abdominal pain, nausea, and vomiting. PE Risk Factors: Negative for Cancer, OCP + Smoking + > 35, Prior DVT or PE, Recent immobilization, Recent surgery or Recent travel PFSH PFSH Home Medications amoxicillin 500 mg capsule 500 mg PO Q8H ##30 05/04/13 [Rx Last Taken Unknown] vits,calcium no.78-iron fumarate-folic acid 29 mg-1 mg tablet (Prenatabs FA) 1 tab PO DAILY 05/04/13 [History Last Taken Unknown] Allergy/AdvReac Type Severity Reaction Status Date / Time aspirin AdvReac Vomiting Verified 07/27/23 17:36 Social History Smoking Status: Former smoker ROS ROS ED Constitutional Constitutional ED: Denies chills or fever(s) Cardiovascular Cardiovascular: Denies chest pain or palpitations Respiratory/Chest Respiratory/Chest: Reports dyspnea; Denies cough Gastrointestinal Gastrointestinal: Denies abdominal pain, nausea or vomiting Musculoskeletal Musculoskeletal: Denies arthralgias or myalgias Integumentary Denies rash Neurologic Neurologic: Denies weakness EXAM Physical Exam Const Vital Signs: 07/27/23 17:36 07/27/23 18:22 07/27/23 18:22 Temperature 97 F L Temperature Source Temporal Pulse Rate 71 Respiratory Rate 18 18 Respiratory Effort Respiratory Depth Respiratory Pattern Blood Pressure 145/78 H Blood Pressure Mean 100 Pulse Ox 98 99 Oxygen Delivery Method Room Air Room Air Room Air 07/27/23 18:22 07/27/23 19:33 07/27/23 20:42 Temperature 97.9 F Temperature Source Pulse Rate 59 L 59 L Respiratory Rate 16 25 H Respiratory Effort Short of Breath Respiratory Depth Normal Respiratory Pattern Normal Blood Pressure 136/86 H 124/86 H Blood Pressure Mean 102 98 Pulse Ox 98 97 Oxygen Delivery Method Room Air Room Air Positive well nourished, well developed and no apparent distress General Appearance ED: well developed HEENT Reports normocephalic and head/scalp atraumatic Mouth ED: Yes moist mucous membranes normal Eyes PERRL and EOMs intact bilaterally Neck full ROM and supple Chest Wall inspection of chest normal Resp normal respiratory effort and clear to auscultation bilaterally Cardio regular rate and regular rhythm GI soft to palpation, non-tender, non-distended and no masses Back/Spine normal ROM and normal to inspection Extremity normal to inspection and full ROM Neuro oriented x3, CN's II-XII intact bilaterally, moves all extremities, no focal motor deficits and no sensory deficits noted Sensorium / Orientation: awake and alert Psych mental status grossly normal and thought process normal Skin Skin Narrative: Faint erythemic rash to the bilateral thighs Physical Exam Const Vital Signs: 07/27/23 17:36 07/27/23 18:22 07/27/23 18:22 Temperature 97 F L Temperature Source Temporal Pulse Rate 71 Respiratory Rate 18 18 Respiratory Effort Respiratory Depth Respiratory Pattern Blood Pressure 145/78 H Blood Pressure Mean 100 Pulse Ox 98 99 Oxygen Delivery Method Room Air Room Air Room Air 07/27/23 18:22 07/27/23 19:33 07/27/23 20:42 Temperature 97.9 F Temperature Source Pulse Rate 59 L 59 L Respiratory Rate 16 25 H Respiratory Effort Short of Breath Respiratory Depth Normal Respiratory Pattern Normal Blood Pressure 136/86 H 124/86 H Blood Pressure Mean 102 98 Pulse Ox 98 97 Oxygen Delivery Method Room Air Room Air MDM MDM MDM Narrative Medical decision making narrative: Patient is well-appearing and in no acute distress, her vitals are unremarkable. She is concerned that the prednisone could be making her feel this way, she noticed the symptoms after she received the Kenalog shot on Friday. Cardiac workup obtained (more content not included)... Normal [facility] Erythrocyte distribution wid th ratioOrdered By: Marcus Gamboa on 07-27-2023 Erythrocyte distribution width (RBC) [Ratio] 12.1 % 11.6-14.6 [facility] Erythrocyte distribution wid th standard deviationOrdered By: Marcus Gamboa on 07-27-2023 Erythrocyte distribution width (RBC) [Entitic vol] 39.2 fL 35.1-43.9 [facility] Hematocrit Auto (Bld) [Volum e fraction]Ordered By: Marcus Gamboa on 07-27-2023 Hematocrit (Bld) [Volume fraction] 42.8 % 37-47 [facility] Immature granulocytes/100 WB C Auto (Bld)Ordered By: Marcus Gamboa on 07-27-2023 Immature granulocytes/100 WBC (Bld) 0.600 % 0.0-0.9 [facility] Comment on above: IG% - Immature Granu locytes (promyelocytes, myelocytes and metamyelocytes) > 1% indicates that a LEFT SHIFT is Present. L501.4020on 07-27-2023 TROPONIN-I HS < 3 Low 3.0-54.0 [facility] Comment on above: Order Comment: 'TROP ' Serial specimen #1, #2 or #3: 1 Result Comment: Daniela manuel Note: New Test Units and Gender Specific Reference Ranges. For more information see Policy Stat Procedure [place] High Sensitivity Troponin (TNIH) and attachments. Performed By: #### L 501.4020 #### [facility] Laboratory [address] [place], [address] Laboratory - Chemistry and C hemistry - challengeOrdered By: Marcus Gamboa on 07-27-2023 CO2 [Moles/Vol] 22.0 mmol/L 21.0-32.0 [facility] Urea nitrogen/Creatinine [Mass ratio] 22.9 mg/mg 10-20 [facility] Laboratory - Hematology and Cell countsOrdered By: Marcus Gamboa on 07-27-2023 MCH (RBC) [Entitic mass] 29.9 pg 27.0-32.0 [facility] MCHC (RBC) [Mass/Vol] 33.6 g/dL 32-36 [facility] Nucleated RBC/100 WBC (Bld) [Ratio] 0 % 0-5 [facility] Platelet mean volume (Bld) [Entitic vol] 9.9 fL 6.2-12.0 [facility] Platelets (Bld) [#/Vol] 293 10*3/uL 150-450 [facility] No Panel InformationOrdered By: Marcus Gamboa on 07-27-2023 Estimated Creatinine Clearance Calc 93.97 ml/min [facility] Estimated GFR (MDRD) Amer 102 mL/min >60 [facility] Comment on above: GFR Calc Estimated GFR (MDRD) Non-Af Amer 85 mL/min >60 [facility] Comment on above: Non- GFR Calc No Panel InformationOrdered By: Laine Apodaca on 07-27-2023 Troponin I High Sensitivity < 3 pg/mL 3.0-54.0 [facility] Comment on above: Please Note: New Selin t Units and Gender Specific Reference Ranges. For more information see Policy Stat Procedure [place] High Sensitivity Troponin (TNIH) and attachments. RBC Auto (Bld) [#/Vol]Ordere d By: Marcus Gamboa on 07-27-2023 RBC (Bld) [#/Vol] 4.82 10*6/uL 4.2-5.4 [facility] Serum or plasma calcium jose martin urement (mass/volume)Ordered By: Marcus Gamboa on 07-27-2023 Calcium [Mass/Vol] 9.4 mg/dL 8.5-10.1 [facility] Serum or plasma creatinine m easurement (mass/volume)Ordered By: Marcus Gamboa on 07-27-2023 Creatinine [Mass/Vol] 0.79 mg/dL 0.55-1.02 [facility] Comment on above: The validity of the calculated GFR & GFRAA in patients over 70 years has not been determined. Clinical correlation is essential. Serum or plasma urea nitroge n measurement (mass/volume)Ordered By: Marcus Gamboa on 07-27-2023 Urea nitrogen [Mass/Vol] 18 mg/dL 7-18 [facility] Thin prep Papanicolaou smear with manual screeningOrdered By: Marcus Gamboa on 07-27-2023 Thin prep Papanicolaou smear with manual screening 12 5-15 [facility] CNOVon 07-17-2023 CNOV Office Visit (UCTR) ---- MANJU SALDANA ([id number]) 1980 F Date Time Provider Department 07/17/23 3:45 PM KATHI ASHBY [facility] During your visit today, we recorded the following information about you: Temperature Pulse Respiration Blood pressure 98 degrees 71/minute 18/minute 137/84 Weight Last Period 72 kg 07/03/23 Kathi Ashby APRN.ADRI 07/17/2023 6:42 PM Signed Subjective HPI HPI Manju Leggett Les is a 42 year old female who presents today for CC of itchy rash. This started 5 days ago. Has tried otc medication for relief. Symptoms are worsened by nothing. Risk factors recent exposure to plants/yardwork. Denies possibility of being . .Patient presents with: Rash: Rash all over body x 5 days PAST MEDICAL HISTORY Diagnosis Date NEGATIVE MEDICAL HISTORY PAST SURGICAL HISTORY Procedure Laterality Date DILATION AND CURETTAGE DXAND/THER NONOBSTETRIC Dilation AND curettage ALLERGIES Asa [Aspirin] MEDICATIONS BECK 24 FE 1 mg-20 mcg (24)/75 mg (4) take 1 tablet by mouth daily --OKAY TO SKIP PLACEBO TALBETS AND RESTART THE NEXT PACK ON DAY 24 lidocaine viscous (LIDOCAINE VISCOUS) 2 % solution Gargle and spit 10-15mLs every 3-4 hours as need for throat discomfort. (Patient not taking: Reported on 02/16/2020) guaiFENesin (MUCINEX) 600 mg 12 hr tablet Take 2 tablets by mouth twice daily. (Patient not taking: Reported on 02/16/2020) benzonatate (TESSALON PERLES) 100 mg capsule Take 1 capsule by mouth three times daily as needed. (Patient not taking: Reported on 02/16/2020) triamcinolone (KENALOG) 0.025 % cream Apply 1 application to affected area twice daily. (Patient not taking: Reported on 01/12/2019) Daywqdjd-Xl-Iyn-Fe- FA ORAL Tab TAKE ONE DAILY (Patient not taking: No sig reported) FAMILY HISTORY Problem Relation Age of Onset Stroke Maternal Grandmother Emphysema Maternal Grandfather Heart Maternal Grandmother Hypertension Maternal Grandmother Social History Tobacco Use Smoking status: Former Packs/day: 1.00 Years: 10.00 Additional pack years: 0.00 Total pack years: 10.00 Types: Cigarettes Smokeless tobacco: Never Substance Use Topics Alcohol use: No Drug use: No Review of Systems Constitutional: Negative for chills and fever. Skin: Positive for itching and rash (Positive for clear, watery drainage. Denies warmth and purulent drainage. ). Objective Blood pressure 137/84, pulse 71, temperature 36.7 ?C (98 ?F), resp. rate 18, weight 72 kg (158 lb 11.7 oz), last menstrual period 07/03/2023, SpO2 97%. Physical Exam Constitutional: General: She is not in acute distress. Appearance: She is not toxic-appearing or diaphoretic. HENT: Head: Normocephalic and atraumatic. Skin: General: Skin is warm and dry. Findings: Rash present. Rash is vesicular (distribution linear ). Neurological: Mental Status: She is alert and oriented to person, place, and time. ASSESSMENT/PLAN: 1. Rhus dermatitis - ICD9: 692.6, ICD10: L25.5 - Oral Steriod tx -Prednisone taper - Topical steriod tx with Rx for steriod cream/ointment- see orders - discussed skin care of rash - follow up if symptoms persist or worsen. - PREDNISONE 10 MG TABLET - TRIAMCINOLONE ACETONIDE 0.1 % TOPICAL CREAM JAKOB Turk Jonathan, APRN.CNP 07/17/2023 6:41 PM Signed [facility] PATIENT INFO POISON MESHA INTRODUCTION When the skin comes in direct contact with an irritating or allergy-causing substance, contact dermatitis can develop. Exposure to poison mesha, poison oak, and poison sumac cause more cases of allergic contact dermatitis than all other plant families combined. People of all ethnicities and skin types are at risk for developing poison mesha dermatitis. The severity of the reaction tends to decrease with age, especially in people who have had mild reactions in the past. People in occupations such as firefighting, forestry, and farming are at a higher risk of poison mesha dermatitis because of repeated exposure to toxic plants. POISON MESHA CAUSES Poison mesha, poison oak, and poison sumac plants all contain a compound called urushiol, which is a light, colorless oil that is found on the fruit, leaves, stem, root, and sap of the plant. When urushiol is exposed to air, it turns brown and the plant leaves develop small black spots. There are several ways that you can be exposed to urushiol: By touching the sap or rubbing against the leaves of the toxic plant By touching something that has urushiol on it, such as animal fur or garden tools By breathing in smoke when toxic plants are burned Ginkgo fruit and the skin of mangoes also contain urushiol and can produce symptoms similar to poison mesha dermatitis. IDENTIFYING POISON MESHA Leaves of three, let them be is a phrase often used to identify plants that cause poison mesha dermatitis. Generally, poiso (more content not included)... Normal [facility] LABORATORYOrdered By: [employer] SYSTEM on 07-07-2022 Calcium [Mass/Vol] 9.4 mg/dL Invalid Interpretation Code 8.4 - 10.2 mg/dL AO ADM SS Chloride [Moles/Vol] 103 mmol/L Invalid Interpretation Code 98 - 107 mmol/L AO ADM SS CK [Catalytic activity/Vol] 123 U/L Invalid Interpretation Code 26 - 192 U/L AO ADM SS CO2 [Moles/Vol] 26 mmol/L Invalid Interpretation Code 22 - 29 mmol/L AO ADM SS Creatinine [Mass/Vol] 0.78 mg/dL Invalid Interpretation Code 0.55 - 1.02 mg/dL AO ADM SS Electrolyte Balance 10.0 mEq/L Invalid Interpretation Code 4.0 - 15.0 mEq/L AO ADM SS GFR/1.73 sq M.predicted among blacks MDRD (S/P/Bld) [Vol rate/Area] 98 ml/min/1.73sqm Invalid Interpretation Code AO Chemistry S GFR/1.73 sq M.predicted among non-blacks MDRD (S/P/Bld) [Vol rate/Area] 81 ml/min/1.73sqm Invalid Interpretation Code AO Chemistry S Glucose [Mass/Vol] 97 mg/dL Invalid Interpretation Code 70 - 105 mg/dL AO ADM SS Magnesium [Mass/Vol] 1.9 mg/dL Invalid Interpretation Code 1.8 - 2.4 mg/dL AO ADM SS Potassium [Moles/Vol] 4.2 mmol/L Invalid Interpretation Code 3.5 - 5.1 mmol/L AO ADM SS Sodium [Moles/Vol] 139 mmol/L Invalid Interpretation Code 136 - 145 mmol/L AO ADM SS Urea nitrogen [Mass/Vol] 16 mg/dL Invalid Interpretation Code 7 - 18 mg/dL AO ADM SS Urea nitrogen/Creatinine [Mass ratio] 21 ratio Invalid Interpretation Code 7 - 27 ratio AO ADM SS LABORATORYOrdered By: Sumi Keating on 07-07-2022 Fibrin D-dimer DDU (PPP) [Mass/Vol] 828 ng/mL D-DU Invalid Interpretation Code 0 - 230 ng/mL D-DU AO [facility] SS LABORATORYOrdered By: Jason Sandoval on 01-05-2022 Albumin BCP dye [Mass/Vol] 3.9 G/dL Invalid Interpretation Code 3.5 - 5.0 G/dL AO ADM SS Albumin/Globulin [Mass ratio] 1.2 {ratio} Invalid Interpretation Code 1.1 - 2.5 ratio AO ADM SS ALP [Catalytic activity/Vol] 76 U/L Invalid Interpretation Code 40 - 135 U/L AO ADM SS ALT With P-5'-P [Catalytic activity/Vol] 22 U/L Invalid Interpretation Code 14 - 59 U/L AO ADM SS AST With P-5'-P [Catalytic activity/Vol] 14 U/L Invalid Interpretation Code 10 - 40 U/L AO ADM SS Bilirubin [Mass/Vol] 0.7 mg/dL Invalid Interpretation Code 0.2 - 1.0 mg/dL AO ADM SS Calcium [Mass/Vol] 9.0 mg/dL Invalid Interpretation Code 8.4 - 10.2 mg/dL AO ADM SS Chloride [Moles/Vol] 103 mmol/L Invalid Interpretation Code 98 - 107 mmol/L AO ADM SS Cholesterol [Mass/Vol] 174 mg/dL Invalid Interpretation Code 0 - 200 mg/dL AO ADM SS Cholesterol in HDL [Mass/Vol] 59 mg/dL Invalid Interpretation Code 40 - 60 mg/dL AO ADM SS Cholesterol in LDL [Mass/Vol] 101 mg/dL Invalid Interpretation Code 0 - 130 mg/dL AO ADM SS CO2 [Moles/Vol] 29 mmol/L Invalid Interpretation Code 22 - 29 mmol/L AO ADM SS Creatinine [Mass/Vol] 0.75 mg/dL Invalid Interpretation Code 0.55 - 1.02 mg/dL AO ADM SS Electrolyte Balance 6.0 mEq/L Invalid Interpretation Code 4.0 - 15.0 mEq/L AO ADM SS Globulin 3.2 G/dL Invalid Interpretation Code AO ADM SS Glucose [Mass/Vol] 88 mg/dL Invalid Interpretation Code 70 - 105 mg/dL AO ADM SS Potassium [Moles/Vol] 4.4 mmol/L Invalid Interpretation Code 3.5 - 5.1 mmol/L AO ADM SS Protein [Mass/Vol] 7.1 G/dL Invalid Interpretation Code 6.4 - 8.2 G/dL AO ADM SS Sodium [Moles/Vol] 138 mmol/L Invalid Interpretation Code 136 - 145 mmol/L AO ADM SS Triglyceride [Mass/Vol] 72 mg/dL Invalid Interpretation Code 0 - 150 mg/dL AO ADM SS Urea nitrogen [Mass/Vol] 14 mg/dL Invalid Interpretation Code 7 - 18 mg/dL AO ADM SS Urea nitrogen/Creatinine [Mass ratio] 19 ratio Invalid Interpretation Code 7 - 27 ratio AO ADM SS LABORATORYOrdered By: SYSTEM SYSTEM on 01-05-2022 GFR 103 ml/min/1.73sqm Invalid Interpretation Code AO Chemistry S GFR Non- 85 ml/min/1.73sqm Invalid Interpretation Code AO Chemistry S Vital Signs Date Time Vital Sign Value Performing Clinician Facility 12-04-2023 10:58-0400 Diastolic Blood Pressure Non-Invasive 78 mm[Hg] FERNIE SHEROCK DO [facility] 12-04-2023 10:58-0400 Heart rate 48 /min FERNIE SHEROCK DO [facility] 12-04-2023 10:58-0400 Respiratory rate 15 /min FERNIE SHEROCK DO [facility] 12-04-2023 10:58-0400 Systolic Blood Pressure Non-Invasive 127 mm[Hg] FERNIE SHEROCK DO [facility] 12-04-2023 09:45-0400 Diastolic Blood Pressure Non-Invasive 70 mm[Hg] FERNIE SHEROCK DO [facility] 12-04-2023 09:45-0400 Heart rate 52 /min FERNIE SHEROCK DO [facility] 12-04-2023 09:45-0400 Respiratory rate 14 /min FERNIE SHEROCK DO [facility] 12-04-2023 09:45-0400 Systolic Blood Pressure Non-Invasive 128 mm[Hg] FERNIE SHEROCK DO [facility] 12-04-2023 09:30-0400 Diastolic Blood Pressure Non-Invasive 83 mm[Hg] FERNIE SHEROCK DO [facility] 12-04-2023 09:30-0400 Heart rate 54 /min FERNIE SHEROCK DO [facility] 12-04-2023 09:30-0400 Respiratory rate 16 /min FERNIE SHEROCK DO [facility] 12-04-2023 09:30-0400 Systolic Blood Pressure Non-Invasive 135 mm[Hg] FERNIE SHEROCK DO [facility] 12-04-2023 09:07-0400 Body temperature 96.26 [degF] FERNIE SHEROCK DO [facility] 12-04-2023 09:05-0400 Respiratory Rate - Anes 0 br/min FERNIE SHEROCK DO [facility] 12-04-2023 08:55-0400 Respiratory Rate - Anes 15 br/min FERNIE SHEROCK DO [facility] 12-04-2023 08:35-0400 Body temperature 98.6 [degF] FERNIE SHEROCK DO [facility] 12-04-2023 07:11-0400 Body height 167.6 cm FERNIE SHEROCK DO [facility] 12-04-2023 07:11-0400 Body temperature 97.52 [degF] FERNIE SHEROCK DO [facility] 12-04-2023 07:11-0400 Body weight 72 kg FERNIE SHEROCK DO [facility] 12-04-2023 07:11-0400 Heart rate 63 /min FERNIE SHEROCK DO [facility] 11-24-2023 11:25-0400 Blood Pressure Location FERNIE RUBIO DO [facility] 11-24-2023 11:25-0400 Blood Pressure Method FERNIE RAMIRO D O [facility] 11-24-2023 11:25-0400 Body height 167.6 cm FERNIE RUBIO DO [facility] 11-24-2023 11:25-0400 Body weight 72 kg FERNIE RUBIO DO [facility] 11-24-2023 11:25-0400 Body weight 25.63 kg/m2 FERNIE RUBIO DO [facility] 11-24-2023 11:25-0400 Diastolic Blood Pressure Non-Invasive 80 mm[Hg] FERNIE CRUMSHANNEN DO [facility] 11-24-2023 11:25-0400 Heart rate 62 /min FERNIE RUBIO DO [facility] 11-24-2023 11:25-0400 Respiratory rate 16 /min FERNIE RUBIO DO [facility] 11-24-2023 11:25-0400 Systolic Blood Pressure Non-Invasive 119 mm[Hg] FERNIE RUBIO DO [facility] 07-27-2023 20:42-0400 Body temperature 97.9 [degF] [facility] 07-27-2023 20:42-0400 Diastolic blood pressure 86 mm[Hg] [facility] 07-27-2023 20:42-0400 Heart rate 59 /min [facility] 07-27-2023 20:42-0400 Respiratory rate 25 /min [facility] 07-27-2023 20:42-0400 SaO2% (BldA) [Mass fraction] 97 % [facility] 07-27-2023 20:42-0400 Systolic blood pressure 124 mm[Hg] [facility] 07-27-2023 17:36-0400 Body height 167.64 cm [facility] 07-27-2023 17:36-0400 Body mass index (BMI) [Ratio] 26 kg/m2 [facility] 07-27-2023 17:36-0400 Body weight 73.11 kg [facility] 07-17-2023 15:47-0400 Body temperature 98.01 [degF] Kathi Isma MANAGER ROOFING.PUBLIC HEALTH AIDE Work Phone: [facility] 07-17-2023 15:47-0400 Body weight 72 kg Kathi King MANAGER ROOFING.PUBLIC HEALTH AIDE Work Phone: [facility] 07-17-2023 15:47-0400 Diastolic blood pressure 84 mm[Hg] Kathi Ashby MANAGER ROOFING.PUBLIC HEALTH AIDE Work Phone: [facility] 07-17-2023 15:47-0400 Heart rate 71 /min Kathi King MANAGER ROOFING.PUBLIC HEALTH AIDE Work Phone: [facility] 07-17-2023 15:47-0400 Respiratory rate 18 /min Kathi King MANAGER ROOFING.PUBLIC HEALTH AIDE Work Phone: [facility] 07-17-2023 15:47-0400 SaO2% (BldA) [Mass fraction] 97 % Kathi Ashby MANAGER ROOFING.PUBLIC HEALTH AIDE Work Phone: [facility] 07-17-2023 15:47-0400 Systolic blood pressure 137 mm[Hg] Kathi Isma MANAGER ROOFING.PUBLIC HEALTH AIDE Work Phone: [facility] 07-07-2022 17:58-0400 Body temperature 97.88 [degF] ISABELLA PAIZ MD [facility] 07-07-2022 17:58-0400 Body weight 74.4 kg ISABELLA PAIZ MD [facility] 07-07-2022 17:58-0400 Diastolic Blood Pressure Non-Invasive 92 1 ISABELLA PAIZ MD [facility] 07-07-2022 17:58-0400 Heart rate 72 /min ISABELLA PAIZ MD [facility] 07-07-2022 17:58-0400 Respiratory rate 16 /min ISABELLA PAIZ MD [facility] 07-07-2022 17:58-0400 Systolic Blood Pressure Non-Invasive 149 1 ISABELLA PAIZ MD [facility] 05-07-2022 16:09-0500 Body temperature 97.81 [degF] Ascencion Spence MANAGER ROOFING.PUBLIC HEALTH AIDE Work Phone: [facility] 05-07-2022 16:09-0500 Body weight 74.39 kg Ascencion Spence MANAGER ROOFING.PUBLIC HEALTH AIDE Work Phone: [facility] 05-07-2022 16:09-0500 Diastolic blood pressure 72 mm[Hg] Ascencion Spence MANAGER ROOFING.PUBLIC HEALTH AIDE Work Phone: [facility] 05-07-2022 16:09-0500 Heart rate 72 /min Ascencion Spence MANAGER ROOFING.PUBLIC HEALTH AIDE Work Phone: [facility] 05-07-2022 16:09-0500 Respiratory rate 16 /min Ascencion Spence MANAGER ROOFING.PUBLIC HEALTH AIDE Work Phone: [facility] 05-07-2022 16:09-0500 SaO2% (BldA) [Mass fraction] 98 % Ascencion Spence MANAGER ROOFING.PUBLIC HEALTH AIDE Work Phone: [facility] 05-07-2022 16:09-0500 Systolic blood pressure 120 mm[Hg] Ascencion Spence MANAGER ROOFING.PUBLIC HEALTH AIDE Work Phone: [facility] Encounters Encounter Date Encounter Type Care Provider Facility Start: 12-04-2023 End: 12-04-[address] BRAD GIBBONS DO Facility:[facility] Start: 12-04-2023 End: 12-04-2023 SAME DAY STAY FERNIE RUBIO DO [facility] Start: 11-24-2023 End: 11-24-2023 Admission to establishment FERNIE RUBIO DO [facility] Start: 11-24-2023 End: 11-24-[address] BRAD GIBBONS DO Facility:[facility] Start: 10-14-2023 ambulatory FERNIE RUBIO DO F acility:B Start: 09-29-2023 End: 09-29-2023 ambulatory COURTNEY SORIANO Facility: Start: 09-29-2023 End: 09-29-2023 Patient encounter procedure COURTNEY SORIANO [facility] Start: 07-27-2023 End: 07-27-2023 Emergency department patient visit [facility] Facility:[facility] Start: 07-27-2023 End: 07-27-2023 Emergency department patient visit [facility] Work Phone: Start: 07-17-2023 End: 07-17-2023 ambulatory BRAD GIBBONS Facility:[facility] Start: 07-17-2023 End: 07-17-2023 Patient encounter procedure Kathi Ashby APRN.CNP Work Phone: [facility] Comment on above: Rhus dermatitis (Bernadine sandeep Dx) Start: 07-16-2022 End: 07-16-[address] BRAD GIBBONS DO [facility] Start: 07-08-2022 End: 07-08-2022 Patient encounter procedure ISABELLA PAIZ MD [facility] Start: 07-07-2022 End: 07-07-2022 Emergency department patient visit ISABELLA PAIZ MD [facility] Start: 05-07-2022 End: 05-07-2022 Office outpatient visit 25 minutes Ascencion Navarrolillian ROBERT Work Phone: [facility] Comment on above: Sore throat (Primary Dx); Sinobronchitis Start: 01-05-2022 End: 01-05-[address] BRAD GIBBONS DO [facility] Procedures Date Procedure Procedure Detail Performing Clinician Start: 07-27-2023 Plain chest X-ray Start: 03-17-2012 Loop electrosurgical excision procedure DR BRAD GIBBONS DO Induced (disorder) DR BRAD GIBBONS DO Plan of Treatment Date Care Activity Detail Author Start: 11-16-2023 Influenza vaccination Influenz a Vaccine (Season Ended) [facility] Start: 07-27-2023 End: 07-27-2023 [facility] Start: 03-17-2023 Behavioral Health Screening Behavioral Health Screening [facility] Start: 11-15-2022 Covid-19 Vaccine ( season) Covid-19 Vaccine ( season) [facility] Start: 03-17-2022 DEPRESSION ASSESSMENT DEPRESSION ASS ESSMENT [facility] Start: 11-15-2021 Influenza vaccination INFLUENZA (#1) [facility] Start: 05-26-2021 COVID-19 VACCINE (4 - Booster for Moderna series) COVID-19 VACCINE (4 - Booster for Moderna series) [facility] Start: 2019 Mammography MAMMOGRAM [facility] Start: 2019 Screening for malign ant neoplasm of breast Mammogram Screening [facility] Start: 11-26-2009 HPV TESTING HPV TESTING [facility] Start: 11-26-2009 Screening for malign ant neoplasm of cervix HPV Testing [facility] Start: 11-26-2000 PAP TESTING PAP TESTING [facility] Start: 11-26-2000 Screening for malign ant neoplasm of cervix Pap Testing [facility] Start: 11-26-1998 Hepatitis B Vaccine (1 of 3 - 19+ 3-dose series) Hepatitis B Vaccine (1 of 3 - 19+ 3-dose series) [facility] Start: 11-26-1998 Urine microalbumin profile [facility] Start: 11-26-1997 HEPATITIS C SCREENING HEPATITIS C [facility] Start: 11-26-1997 Hepatitis C screening Hepatitis C [facility] Start: 11-26-1997 HIV SCREENING HIV SCREENING [facility] Start: 11-26-1997 HIV screening HIV Screening [facility] Start: 1979 HEPATITIS B (1 of 3 - 3-dose series) HEPATITIS B (1 of 3 - 3-dose series) [facility] Patient Education ED Dizziness, Uncertain Cause ED Dyspnea [facility] Work Phone: Patient referral [facility] Work Phone: STREP A MOLECULAR (POC) STREP A MOLECULAR (POC) Microbiology Routine Sore throat Ordered: 05/07/2022 [facility] Work Phone: Comment on above: Ordered: 05/07/2022 Immunizations Immunization Date Immunization Notes Care Provider Fa cility 06-09-2020 COVID-19, mRNA, LNP- S, PF, 100 mcg or 50 mcg dose; Translations: [Moderna COVID-19 Vaccine] DR BRAD GIBBONS DO [facility] 05-13-2020 COVID-19, mRNA, LNP- S, PF, 100 mcg or 50 mcg dose; Translations: [Moderna COVID-19 Vaccine] DR BRAD GIBBONS DO [facility] Vaccine [facility] Payers Date Payer Category Payer Self-pay 2020 Unknown [employer] PPO [id number] 2020-Present [phone] [id number] [place] [address] PPO [id number] 2020 Unknown [id number] 1979 Unknown [id number] 1979 Unknown [id number] 1979 Unknown [id number] 1979 Unknown [id number] 1979 Unknown [id number] [facility] [employer] [id number] Unknown [id number] Social History Date Type Detail Facility Start: 01-10-2016 End: 10-28-2018 Tobacco smoking status Ex-smoker (finding) [facility] Comment on above: No Tobacco/Smoke Exp osure Start: 1980 Sex Assigned At Female A [facility] History of tobacco use Current smoker [facility] History of tobacco use Cigarette Smoker [facility] Start: 01-10-2016 End: 02-19-2020 Cigarettes smoked current (pack per day) - Reported 1 [facility] Start: 01-10-2016 Tobacco use and exposure Smokeless tobacco non-user [facility] Start: 05-07-2022 End: 07-17-2023 Alcohol intake Current non-drinker of alcohol (finding) [facility] Start: 1980 Sex Assigned At Not on file [facility] Start: 02-19-2020 End: 07-17-2023 Tobacco use panel [facility] Adult Depression Screening Assessment 0 [facility] Start: 07-27-2023 [facility] Functional Status Date Assessment Result Facility 12-04-2023 Functional Status bilateral knee high morena lied/on [facility] 12-04-2023 Functional Status Maintained [facility] 07-07-2022 Functional Status Independent [facility] 07-07-2022 Functional Status Standard Safet y ID band on, Allergy Band on, Call device within reach, Bed in low position, Wheels locked, Upper/Half-Length side-rails up, Phone within reach, personal items within reach, Visitor at bedside [facility] Mental Status Date Assessment Result Facility 12-04-2023 Mental Status Orientation Oriented x 4 [facility] 07-07-2022 Mental Status Orientation Oriented x 4 [facility] 07-07-2022 Mental Status [facility] Clinical Notes 01-04-2022 to 12-04-2023 Patient InstructionsKathi Ashby APRN.PUBLIC HEALTH AIDE - 07/17/2023 3:55 PM Claire Spence APRN.CNP - 05/07/2022 4:27 PM ESTRadiology Note Date & Type Note Facility 12-04-2023 Hospital Discharge instructions Patient Education 12/04/2023 09:29:36 Nausea and Vomiting, Adult Nausea and Vomiting, Adult Nausea is the feeling that you have an upset stomach or that you are about to vomit. Vomiting is when stomach contents are thrown up and out of the mouth as a result of nausea. Vomiting can make you feel weak and cause you to become dehydrated. Dehydration can make you feel tired and thirsty, cause you to have a dry mouth, and decrease how often you urinate. Older adults and people with other diseases or a weak disease-fighting system (immune system) are at higher risk for dehydration. It is important to treat your nausea and vomiting as told by your health care provider. Follow these instructions at home: Watch your symptoms for any changes. Tell your health care provider about them. Follow these instructions to care for yourself at home. Eating and drinking Take an oral rehydration solution (ORS). This is a drink that is sold at pharmacies and retail stores. Drink clear fluids slowly and in small amounts as you are able. Clear fluids include water, ice chips, low-calorie sports drinks, and fruit juice that has water added (diluted fruit juice). Eat bland, flbz-uz-vpmpcc foods in small amounts as you are able. These foods include bananas, applesauce, rice, lean meats, toast, and crackers. Avoid fluids that contain a lot of sugar or caffeine, such as energy drinks, sports drinks, and soda. Avoid alcohol. Avoid spicy or fatty foods. General instructions Take uldr-zen-ccrekqm and prescription medicines only as told by your health care provider. Drink enough fluid to keep your urine pale yellow. Wash your hands often using soap and water. If soap and water are not available, use hand bung driver. Make sure that all people in your household wash their hands well and often. Rest at home while you recover. Watch your condition for any changes. Breathe slowly and deeply when you feel nauseated. Keep all follow-up visits as told by your health care provider. This is important. Contact a health care provider if: Your symptoms get worse. You have new symptoms. You have a fever. You cannot drink fluids without vomiting. Your nausea does not go away after 2 days. You feel light-headed or dizzy. You have a headache. You have muscle cramps. You have a rash. You have pain while urinating. Get help right away if: You have pain in your chest, neck, arm, or jaw. You feel extremely weak or you faint. You have persistent vomiting. You have vomit that is bright red or looks like black coffee grounds. You have bloody or black stools or stools that look like tar. You have a severe headache, a stiff neck, or both. You have severe pain, cramping, or bloating in your abdomen. You have difficulty breathing, or you are breathing very quickly. Your heart is beating very quickly. Your skin feels cold and clammy. You feel confused. You have signs of dehydration, such as: ?Dark urine, very little urine, or no urine. ?Cracked lips. ?Dry mouth. ?Sunken eyes. ?Sleepiness. ?Weakness. These symptoms may represent a serious problem that is an emergency. Do not wait to see if the symptoms will go away. Get medical help right away. Call your local emergency services (911 in the [place] Do not drive yourself to the hospital. Summary Nausea is the feeling that you have an upset stomach or that you are about to vomit. As nausea gets worse, it can lead to vomiting. Vomiting can make you feel weak and cause you to become dehydrated. Follow instructions from your health care provider about eating and drinking to prevent dehydration. Take lnrt-dub-niedamz and prescription medicines only as told by your health care provider. Contact your health care provider if your symptoms get worse, or you have new symptoms. Keep all follow-up visits as told by your health care provider. This is important. This information is not intended to replace advice given to you by your health care provider. Make sure you discuss any questions you have with your health care provider. Document Released: 03/03/2006 Document Revised: 06/25/2019 Document Reviewed: 08/11/2018 [employer] Patient Education 2020 [employer] 12/04/2023 09:29:27 General Anesthesia, Adult General Anesthesia, Adult General anesthesia is the use of medicines to make a person go to sleep (unconscious) for a medical procedure. General anesthesia must be used for certain procedures, and is often recommended for procedures that: Last a long time. Require you to be still or in an unusual position. Are major and can cause blood loss. The medicines used for general anesthesia are called general anesthetics. As well as making you unconscious for a certain amount of time, these medicines: Prevent pain. Control your blood pressure. Relax your muscles. Tell a health care provider about: Any allergies you have. All medicines you are taking, including vitamins, herbs, eye drops, creams, and qzle-iyu-xfcslai medicines. Any problems you or family members have had with anesthetic medicines. Types of anesthetics you have had in the past. Any blood disorders you have. Any surgeries you have had. Any medical conditions you have. Any recent upper respiratory, chest, or ear infections. Any history of: ?Heart or lung conditions, such as heart failure, sleep apnea, asthma, or chronic obstructive pulmonary disease (COPD). ? service. ?Depression or anxiety. Any tobacco or drug use, including marijuana or alcohol use. Whether you are or may be . What are the risks? Generally, this is a safe procedure. However, problems may occur, including: Allergic reaction. Lung and heart problems. Inhaling food or liquid from the stomach into the lungs (aspiration). Nerve injury. Dental injury. Air in the bloodstream, which can lead to stroke. Extreme agitation or confusion (delirium) when you wake up from the anesthetic. Waking up during your procedure and being unable to move. This is rare. These problems are more likely to develop if you are having a major surgery or if you have an advanced or serious medical condition. You can prevent some of these complications by answering all of your health care provider's questions thoroughly and by following all instructions before your procedure. General anesthesia can cause side effects, including: Nausea or vomiting. A sore throat from the breathing tube. Hoarseness. Wheezing or coughing. Shaking chills. Tiredness. Body aches. Anxiety. Sleepiness or drowsiness. Confusion or agitation. What happens before the procedure? Staying hydrated Follow instructions from your health care provider about hydration, which may include: Up to 2 hours before the procedure you may continue to drink clear liquids, such as water, clear fruit juice, black coffee, and plain tea. Eating and drinking restrictions Follow instructions from your health care provider about eating and drinking, which may include: 8 hours before the procedure stop eating heavy meals or foods such as meat, fried foods, or fatty foods. 6 hours before the procedure stop eating light meals or foods, such as toast or cereal. 6 hours before the procedure stop drinking milk or drinks that contain milk. 2 hours before the procedure stop drinking clear liquids. Medicines Ask your health care provider about: Changing or stopping your regular medicines. This is especially important if you are taking diabetes medicines or blood thinners. Taking medicines such as aspirin and ibuprofen. These medicines can thin your blood. Do not take these medicines unless your health care provider tells you to take them. Taking sniz-pdw-cpsvwwx medicines, vitamins, herbs, and supplements. Do not take these during the week before your procedure unless your health care provider approves them. General instructions Starting 3 6 weeks before the procedure, do not use any products that contain nicotine or tobacco, such as cigarettes and e-cigarettes. If you need help quitting, ask your health care provider. If you brush your teeth on the morning of the procedure, make sure to spit out all of the toothpaste. Tell your health care provider if you become ill or develop a cold, cough, or fever. If instructed by your health care provider, bring your sleep apnea device with you on the day of your surgery (if applicable). Ask your health care provider if you will be going home the same day, the following day, or after a longer hospital stay. ?Plan to have someone take you home from the hospital or clinic. ?Plan to have a responsible adult care for you for at least 24 hours after you leave the hospital or clinic. This is important. What happens during the procedure? You will be given anesthetics through both of the following: ?A mask placed over your nose and mouth. ?An IV in one of your veins. You may receive a medicine to help you relax (sedative). After you are unconscious, a breathing tube may be inserted down your throat to help you breathe. This will be removed before you wake up. An anesthesia specialist will stay with you throughout your procedure. He or she will: ?Keep you comfortable and safe by continuing to give you medicines and adjusting the amount of medicine that you get. ?Monitor your blood pressure, pulse, and oxygen levels to make sure that the anesthetics do not cause any problems. The procedure may vary among health care providers and hospitals. What happens after the procedure? Your blood pressure, temperature, heart rate, breathing rate, and blood oxygen level will be monitored until the medicines you were given have worn off. You will wake up in a recovery area. You may wake up slowly. If you feel anxious or agitated, you may be given medicine to help you calm down. If you will be going home the same day, your health care provider may check to make sure you can walk, drink, and urinate. Your health care provider will treat any pain or side effects you have before you go home. Do not drive for 24 hours if you were given a sedative. Summary General anesthesia is used to keep you still and prevent pain during a procedure. It is important to tell your health care provider about your medical history and any surgeries you have had, and previous experience with anesthesia. Follow your health care provider's instructions about when to stop eating, drinking, or taking certain medicines before your procedure. Plan to have someone take you home from the hospital or clinic. This information is not intended to replace advice given to you by your health care provider. Make sure you discuss any questions you have with your health care provider. Document Released: 06/09/2008 Document Revised: 07/21/2018 Document Reviewed: 10/17/2017 [employer] Patient Education 2020 [employer] 12/04/2023 09:08:02 Endometrial Ablation, Care After Endometrial Ablation, Care After This sheet gives you information about how to care for yourself after your procedure. Your health care provider may also give you more specific instructions. If you have problems or questions, contact your health care provider. What can I expect after the procedure? After the procedure, it is common to have: A need to urinate more frequently than usual for the first 24 hours. Cramps similar to menstrual cramps. These may last for 1 2 days. Thin, watery vaginal discharge that is light pink or brown in color. This may last a few weeks. Discharge will be heavy for the first few days after your procedure. You may need to wear a sanitary pad. Nausea. Vaginal bleeding for 4 6 weeks after the procedure, as tissue healing occurs. Follow these instructions at home: Activity Do not drive for 24 hours if you were given amedicine to help you relax (sedative) during your procedure. Do not have sex or put anything into your vagina until your health care provider approves. Do not lift anything that is heavier than 10 lb (4.5 kg), or the limit that you are told, until your health care provider says that it is safe. Return to your normal activities as told by your health care provider. Ask your health care provider what activities are safe for you. General instructions Take yxfm-pes-owtsqxn and prescription medicines only as told by your health care provider. Do not take baths, swim, or use a hot tub until your health care provider approves. You will be able to take showers. Check your vaginal area every day for signs of infection. Check for: ?Redness, swelling, or pain. ?More discharge or blood, instead of less. ?Bad-smelling discharge. Keep all follow-up visits as told by your health care provider. This is important. Drink enough fluid to keep your urine pale yellow. Contact a health care provider if you have: Vaginal redness, swelling, or pain. Vaginal discharge or bleeding that gets worse instead of getting better. Bad-smelling vaginal discharge. A fever or chills. Trouble urinating. Get help right away if you have: Heavy vaginal bleeding. Severe cramps. Summary After endometrial ablation, it is normal to have thin, watery vaginal discharge that is light pink or brown in color. This may last a few weeks and may be heavier right after the procedure. Vaginal bleeding is also normal after the procedure and should get better with time. Check your vaginal area every day for signs of infection, such as bad-smelling discharge. Keep all follow-up visits as told by your health care provider. This is important. This information is not intended to replace advice given to you by your health care provider. Make sure you discuss any questions you have with your health care provider. Document Released: 01/13/2018 Document Revised: 06/24/2019 Document Reviewed: 01/13/2018 [employer] Patient Education 2020 [employer]. Follow Up Care 10/14/2023 10:54:24 With:FERNIE RUBIO DO Address: [address] [place] [id number]- When:Within 2 Week(s) Comments:Follow-up as scheduled [facility] 12-04-2023 Summary of episode note Discharge Instructions Thank you for allowing [facility] to assist you with your healthcare needs. The following is important discharge information regarding your hospital visit. Your Care Team BRAD GIBBONS DO Your Diagnosis Abnormal uterine bleeding (AUB) Status post endometrial ablation What to do next Follow Up Appointments Follow Up with FERNIE RUBIO DO When:In 2 weeks Where:[address] [place] [id number]- Additional Information: Follow-up as scheduled The Following Activity and Diet Have Been Ordered for You Discharge Activity - Ordered -- Sexual [place] Restricted, 2 weeks, 12/04/23 9:02:00 EDT Discharge Driving Restrictions - Ordered -- No driving until pain-free, 12/04/23 9:02:00 EDT Discharge Return to Work, School, or Sports - Ordered -- within 1-2 days, May return to: work, 12/04/23 9:02:00 EDT Discharge Diet - Ordered -- NNo changes were made to your diet during your hospital stay. Please resume your pre hospitalization diet on discharge., 12/04/23 9:02:00 EDT The Following Treatments Have Been Ordered for You Discharge Labs No qualifying data available. Discharge Radiology No qualifying data available. Other Therapies No qualifying data available. Post Acute Orders No qualifying data available. Allergies aspirin (Mild) Upset Stomach Medications Please ask your primary doctor or pharmacist before taking any other medication not listed, including over the counter drugs, herbal medications, vitamins and or supplements as they may interact with your home medications. What How Much When Why Instructions Last Dose New acetaminophen-oxyCODONE (Percocet 5 mg-325 mg oral tablet) 1 tab(s) by mouth Every 4 hours as needed for for pain Status post endometrial ablation Duration: 2 Days Pickup at [facility]/pharmacy #[id number] New ibuprofen (ibuprofen 600 mg oral tablet) 1 tab(s) by mouth Four (4) times a day as needed for as needed for pain Refills: 1 Pickup at [facility]/pharmacy #[id number] Pharmacy Information [facility]/pharmacy #[id number]: [address], [place] [id number] [phone] Please take this list to your next doctor s visit. Bring all medications you take, including over the counter medications, herbals and other supplements with you to your doctor s visit. Patients and families are reminded to discard old lists and to update any records with all medication providers or retail pharmacies. Education Materials Nausea and Vomiting, Adult Nausea is the feeling that you have an upset stomach or that you are about to vomit. Vomiting is when stomach contents are thrown up and out of the mouth as a result of nausea. Vomiting can make you feel weak and cause you to become dehydrated. Dehydration can make you feel tired and thirsty, cause you to have a dry mouth, and decrease how often you urinate. Older adults and people with other diseases or a weak disease-fighting system (immune system) are at higher risk for dehydration. It is important to treat your nausea and vomiting as told by your health care provider. Follow these instructions at home: Watch your symptoms for any changes. Tell your health care provider about them. Follow these instructions to care for yourself at home. Eating and drinking Take an oral rehydration solution (ORS). This is a drink that is sold at pharmacies and retail stores. Drink clear fluids slowly and in small amounts as you are able. Clear fluids include water, ice chips, low-calorie sports drinks, and fruit juice that has water added (diluted fruit juice). Eat bland, cxxc-jx-kbqjgp foods in small amounts as you are able. These foods include bananas, applesauce, rice, lean meats, toast, and crackers. Avoid fluids that contain a lot of sugar or caffeine, such as energy drinks, sports drinks, and soda. Avoid alcohol. Avoid spicy or fatty foods. General instructions Take lgll-ptj-egzlojn and prescription medicines only as told by your health care provider. Drink enough fluid to keep your urine pale yellow. Wash your hands often using soap and water. If soap and water are not available, use hand bung driver. Make sure that all people in your household wash their hands well and often. Rest at home while you recover. Watch your condition for any changes. Breathe slowly and deeply when you feel nauseated. Keep all follow-up visits as told by your health care provider. This is important. Contact a health care provider if: Your symptoms get worse. You have new symptoms. You have a fever. You cannot drink fluids without vomiting. Your nausea does not go away after 2 days. You feel light-headed or dizzy. You have a headache. You have muscle cramps. You have a rash. You have pain while urinating. Get help right away if: You have pain in your chest, neck, arm, or jaw. You feel extremely weak or you faint. You have persistent vomiting. You have vomit that is bright red or looks like black coffee grounds. You have bloody or black stools or stools that look like tar. You have a severe headache, a stiff neck, or both. You have severe pain, cramping, or bloating in your abdomen. You have difficulty breathing, or you are breathing very quickly. Your heart is beating very quickly. Your skin feels cold and clammy. You feel confused. You have signs of dehydration, such as: ? Dark urine, very little urine, or no urine. ? Cracked lips. ? Dry mouth. ? Sunken eyes. ? Sleepiness. ? Weakness. These symptoms may represent a serious problem that is an emergency. Do not wait to see if the symptoms will go away. Get medical help right away. Call your local emergency services (911 in the [place] Do not drive yourself to the hospital. Summary Nausea is the feeling that you have an upset stomach or that you are about to vomit. As nausea gets worse, it can lead to vomiting. Vomiting can make you feel weak and cause you to become dehydrated. Follow instructions from your health care provider about eating and drinking to prevent dehydration. Take ixxo-jql-fiatsqg and prescription medicines only as told by your health care provider. Contact your health care provider if your symptoms get worse, or you have new symptoms. Keep all follow-up visits as told by your health care provider. This is important. This information is not intended to replace advice given to you by your health care provider. Make sure you discuss any questions you have with your health care provider. Document Released: 03/03/2006 Document Revised: 06/25/2019 Document Reviewed: 08/11/2018 Elsevier Patient Education 2020 [employer]. General Anesthesia, Adult General anesthesia is the use of medicines to make a person go to sleep (unconscious) for a medical procedure. General anesthesia must be used for certain procedures, and is often recommended for procedures that: Last a long time. Require you to be still or in an unusual position. Are major and can cause blood loss. The medicines used for general anesthesia are called general anesthetics. As well as making you unconscious for a certain amount of time, these medicines: Prevent pain. Control your blood pressure. Relax your muscles. Tell a health care provider about: Any allergies you have. All medicines you are taking, including vitamins, herbs, eye drops, creams, and jwsx-ahd-zevflte medicines. Any problems you or family members have had with anesthetic medicines. Types of anesthetics you have had in the past. Any blood disorders you have. Any surgeries you have had. Any medical conditions you have. Any recent upper respiratory, chest, or ear infections. Any history of: ? Heart or lung conditions, such as heart failure, sleep apnea, asthma, or chronic obstructive pulmonary disease (COPD). ? service. ? Depression or anxiety. Any tobacco or drug use, including marijuana or alcohol use. Whether you are or may be . What are the risks? Generally, this is a safe procedure. However, problems may occur, including: Allergic reaction. Lung and heart problems. Inhaling food or liquid from the stomach into the lungs (aspiration). Nerve injury. Dental injury. Air in the bloodstream, which can lead to stroke. Extreme agitation or confusion (delirium) when you wake up from the anesthetic. Waking up during your procedure and being unable to move. This is rare. These problems are more likely to develop if you are having a major surgery or if you have an advanced or serious medical condition. You can prevent some of these complications by answering all of your health care provider's questions thoroughly and by following all instructions before your procedure. General anesthesia can cause side effects, including: Nausea or vomiting. A sore throat from the breathing tube. Hoarseness. Wheezing or coughing. Shaking chills. Tiredness. Body aches. Anxiety. Sleepiness or drowsiness. Confusion or agitation. What happens before the procedure? Staying hydrated Follow instructions from your health care provider about hydration, which may include: Up to 2 hours before the procedure you may continue to drink clear liquids, such as water, clear fruit juice, black coffee, and plain tea. Eating and drinking restrictions Follow instructions from your health care provider about eating and drinking, which may include: 8 hours before the procedure stop eating heavy meals or foods such as meat, fried foods, or fatty foods. 6 hours before the procedure stop eating light meals or foods, such as toast or cereal. 6 hours before the procedure stop drinking milk or drinks that contain milk. 2 hours before the procedure stop drinking clear liquids. Medicines Ask your health care provider about: Changing or stopping your regular medicines. This is especially important if you are taking diabetes medicines or blood thinners. Taking medicines such as aspirin and ibuprofen. These medicines can thin your blood. Do not take these medicines unless your health care provider tells you to take them. Taking exyb-cjy-aqtbeok medicines, vitamins, herbs, and supplements. Do not take these during the week before your procedure unless your health care provider approves them. General instructions Starting 3 6 weeks before the procedure, do not use any products that contain nicotine or tobacco, such as cigarettes and e-cigarettes. If you need help quitting, ask your health care provider. If you brush your teeth on the morning of the procedure, make sure to spit out all of the toothpaste. Tell your health care provider if you become ill or develop a cold, cough, or fever. If instructed by your health care provider, bring your sleep apnea device with you on the day of your surgery (if applicable). Ask your health care provider if you will be going home the same day, the following day, or after a longer hospital stay. ? Plan to have someone take you home from the hospital or clinic. ? Plan to have a responsible adult care for you for at least 24 hours after you leave the hospital or clinic. This is important. What happens during the procedure? You will be given anesthetics through both of the following: ? A mask placed over your nose and mouth. ? An IV in one of your veins. You may receive a medicine to help you relax (sedative). After you are unconscious, a breathing tube may be inserted down your throat to help you breathe. This will be removed before you wake up. An anesthesia specialist will stay with you throughout your procedure. He or she will: ? Keep you comfortable and safe by continuing to give you medicines and adjusting the amount of medicine that you get. ? Monitor your blood pressure, pulse, and oxygen levels to make sure that the anesthetics do not cause any problems. The procedure may vary among health care providers and hospitals. What happens after the procedure? Your blood pressure, temperature, heart rate, breathing rate, and blood oxygen level will be monitored until the medicines you were given have worn off. You will wake up in a recovery area. You may wake up slowly. If you feel anxious or agitated, you may be given medicine to help you calm down. If you will be going home the same day, your health care provider may check to make sure you can walk, drink, and urinate. Your health care provider will treat any pain or side effects you have before you go home. Do not drive for 24 hours if you were given a sedative. Summary General anesthesia is used to keep you still and prevent pain during a procedure. It is important to tell your health care provider about your medical history and any surgeries you have had, and previous experience with anesthesia. Follow your health care provider's instructions about when to stop eating, drinking, or taking certain medicines before your procedure. Plan to have someone take you home from the hospital or clinic. This information is not intended to replace advice given to you by your health care provider. Make sure you discuss any questions you have with your health care provider. Document Released: 06/09/2008 Document Revised: 07/21/2018 Document Reviewed: 10/17/2017 [employer] Patient Education 2020 [employer] Endometrial Ablation, Care After This sheet gives you information about how to care for yourself after your procedure. Your health care provider may also give you more specific instructions. If you have problems or questions, contact your health care provider. What can I expect after the procedure? After the procedure, it is common to have: A need to urinate more frequently than usual for the first 24 hours. Cramps similar to menstrual cramps. These may last for 1 2 days. Thin, watery vaginal discharge that is light pink or brown in color. This may last a few weeks. Discharge will be heavy for the first few days after your procedure. You may need to wear a sanitary pad. Nausea. Vaginal bleeding for 4 6 weeks after the procedure, as tissue healing occurs. Follow these instructions at home: Activity Do not drive for 24 hours if you were given amedicine to help you relax (sedative) during your procedure. Do not have sex or put anything into your vagina until your health care provider approves. Do not lift anything that is heavier than 10 lb (4.5 kg), or the limit that you are told, until your health care provider says that it is safe. Return to your normal activities as told by your health care provider. Ask your health care provider what activities are safe for you. General instructions Take xpif-eel-dysmvwr and prescription medicines only as told by your health care provider. Do not take baths, swim, or use a hot tub until your health care provider approves. You will be able to take showers. Check your vaginal area every day for signs of infection. Check for: ? Redness, swelling, or pain. ? More discharge or blood, instead of less. ? Bad-smelling discharge. Keep all follow-up visits as told by your health care provider. This is important. Drink enough fluid to keep your urine pale yellow. Contact a health care provider if you have: Vaginal redness, swelling, or pain. Vaginal discharge or bleeding that gets worse instead of getting better. Bad-smelling vaginal discharge. A fever or chills. Trouble urinating. Get help right away if you have: Heavy vaginal bleeding. Severe cramps. Summary After endometrial ablation, it is normal to have thin, watery vaginal discharge that is light pink or brown in color. This may last a few weeks and may be heavier right after the procedure. Vaginal bleeding is also normal after the procedure and should get better with time. Check your vaginal area every day for signs of infection, such as bad-smelling discharge. Keep all follow-up visits as told by your health care provider. This is important. This information is not intended to replace advice given to you by your health care provider. Make sure you discuss any questions you have with your health care provider. Document Released: 01/13/2018 Document Revised: 06/24/2019 Document Reviewed: 01/13/2018 [employer] Patient Education 2020 [employer] Additional Information VACCINATE! IT SAVES LIVES! Members of the community who have not yet received the COVID-19 vaccine and would like to receive it can visit one of [facility] vaccine clinics. There are many vaccine clinic locations within the [facility]. For locations and available times, please visit [email or web address] .[email or web address] It is important to note that some COVID mobile vaccine clinics are held outdoors and may be canceled in rainy or stormy conditions. To learn more about pediatric vaccinations (ages 5-11), we invite you to visit the [facility] webpage. [email or web address]/page [email or web address]-[email or web address] -[email or web address]-Questions.[email or web address] To learn more about the COVID-19 vaccine, we invite you to visit the CDC website for a list of frequently asked questions.https://www.cdc.gov/coron avirus/2019-ncov/vaccines/faq.html [email or web address] Patient Portal Access Instructions: Stay connected with your healthcare team and access your personal medical information anytime with the [employer] Patient Portal. Please follow the directions below to create your [employer] account: 1.Access the email account you provided upon registration to the hospital/physician office.2.Look for an invitation email from [facility].3.Open the email and access the invitation link: Accept Invitation to [employer].4.Fill in the required brar to create your account. To access your account, visit [email or web address]. Click the blue button labeled Access Patient Portal and then log in with the username and password that you created in the steps above. You will be able to view your test results, lab results, a summary of your visits, upcoming appointments and more. There is also a convenient messaging option where you can send secure messages to your provider. In addition, you will have the ability to download any documents or summaries to your computer and/or send the information securely to a physician. Remember that your healthcare information is confidential, so carefully consider who you will allow to register on the [employer] Patient Portal for access to your information. You can also access the [employer] Patient Portal on the [email or web address] morena. Simply click on Patient Portal and then log into your account. If you would like to receive a full copy of your medical records, please contact the [facility] Medical Records Department by calling [phone], Friday through Friday between 8 a.m. and 4:30 p.m. HOW TO SAFELY DISPOSE OF PRESCRIPTION MEDICATIONS Please use one of the following methods to safely dispose of your unused medications. 1.Use a drug disposal kit: the drug disposal pouch allows you to safely discard your old and unused drugs. Ask your nurse to give you one when you are discharged.2.Visit a local take-back location: Many local pharmacies and police departments have programs that collect old and unwanted prescription drugs. Call your local pharmacy or go to http://[place]/3B9Hn2o to find one close to you.3.Make use of household items: Use cat litter or old coffee grounds to dispose medications if other options are not available. Mix your drugs with these household products, seal them in an airtight container and throw it into the garbage. Call [facility]: [phone] to be sure your drugs can be disposed of in this way. Some medicines may require a different approach.4.Never flush your medications down the toilet. IF YOU HAVE BEEN PRESCRIBED AN OPIOID FOR PAIN If you have been prescribed an opioid (such as hydrocodone, oxycodone or morphine), it is critical to understand the possible side effects and risks of opioid pain medications. Even when taken as directed, opioids can have several side effects including: Tolerance, meaning you might need to take more of a medication for the same pain relief. Nausea, vomiting and/or constipation. Sleepiness, dizziness, dry mouth, confusion, depression or itching. Physical dependence, meaning you have withdrawal symptoms when a medication is stopped, can develop within a few days. KNOW YOUR RESPONSIBILITIES It is important to know exactly how much and how often to take the opioid pain medications you are prescribed. Never take opioids in higher amounts or more often than prescribed. Do not combine opioids with alcohol or other drugs that cause drowsiness, such as benzodiazepines, also known as benzos, including diazepam and alprazolam, muscle relaxants or sleep aids. Never sell or share prescription opioids. This is illegal. Store opioids in a secure place and out of reach of others (including children, family, friends and visitors). The last page of this document has been signed and retained as a CHART COPY. Signatures Patient Education Materials Nausea and Vomiting, Adult General Anesthesia, Adult Endometrial Ablation, Care After Medication Leaflets My discharge plan and instructions have been reviewed and explained to me and I,MANJU SALDANA understand my current condition and have read and understand these discharge instructions. I have received a written copy of the plan/instructions. If I have questions, I am aware that I should contact my doctor. Patient/[employer] Signature: ____ Date/Time: Relationship to Patient: __ Witness Name/Signature: Date/Time: [facility] 12-04-2023 Anesthesiology Progress note Patient: MANJU SALDANA Age: 43 years Sex: Female : 1980 Associated Diagnoses: None Author: DIONNA BRUCE Preoperative Information Time of last food or liquid consumption: 12/03/2023 23:59:00 Anesthesia history Patient's history: negative. Family's history: negative. Review of Systems Ear/Nose/Mouth/Throat: Negative except as documented in history of present illness. Respiratory: Negative except as documented in history of present illness. Cardiovascular: Negative except as documented in history of present illness. Gastrointestinal: Negative except as documented in history of present illness. Genitourinary: Negative except as documented in history of present illness. Endocrine: Negative except as documented in history of present illness. Musculoskeletal: Negative except as documented in history of present illness. Integumentary: Negative except as documented in history of present illness. Neurologic: Negative except as documented in history of present illness. Health Status Allergies: Allergic Reactions (Selected) Mild Aspirin- Upset stomach., Allergies (1) ActiveSeverityReaction aspirinMildUpset Stomach Current medications: (Selected) , No qualifying data available Problem list: Medical Resolved: Advanced maternal age / SNOMED CT 6890497178 Resolved: / SNOMED CT 191451483 Resolved: / SNOMED CT 372548040 Resolved: / SNOMED CT 816918982 Resolved: / SNOMED CT 565901788 Resolved: / SNOMED CT 930064377 Resolved: / SNOMED CT 654540816 Resolved: / SNOMED CT 541534054 Canceled: Allergic contact dermatitis / SNOMED CT 110797747 Canceled: / SNOMED CT 5506862262, No qualifying data available Histories Past Medical History: Resolved ([id number]): Onset on 08/15/2014 at 33 years. Resolved on 06/12/2015 at 34 years. ([id number]): Onset on 07/11/2012 at 31 years. Resolved on 04/17/2013 at 32 years. ([id number]): Onset on 06/27/2010 at 29 years. Resolved on 08/15/2010 at 29 years. ([id number]): Onset on 05/22/2006 at 25 years. Resolved on 03/12/2007 at 26 years. ([id number]): Onset on 04/04/2003 at 22 years. Resolved on 01/09/2004 at 23 years. ([id number]): Onset on 05/05/1995 at 14 years. Resolved on 06/16/1995 at 14 years. ([id number]): Resolved on 12/11/2000 at 20 years. Advanced maternal age ([id number]): Resolved. Family History: Dementia Grandparent (Maternal Grandmother) Hypertension Mother () Stroke Grandparent (Maternal Grandmother) Heart attack Grandparent (Maternal Grandmother) Mother () Hyperlipidaemia Grandparent (Maternal Grandmother) Procedure history: LEEP ([id number]) in 2013 at 32 Years. Induced ([id number]). 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 Home/Environment 12/04/2023 Primary Pricing Associate: Self Spouse Name SERGEY Marital Status of Patient if Patient Independent Adult: Nutrition/Health 12/04/2023 Type of diet: Regular Caffeine intake amount: Coffee 3 servings daily and 1 V8 energy drink Eating Difficulties None Physical Examination Vital Signs 12/04/2023 7:11 EDT Temperature Temporal Artery 36.4 DegC Apical Heart Rate 63 bpm Respiratory Rate 16 br/min Systolic Blood Pressure Non-Invasive 128 mmHg Diastolic Blood Pressure Non-Invasive 77 mmHg Vital Signs (last 24 hrs) Last Charted Temp Nrjcujwa42.4 DegC (DEC 03 07:11) Heart Rate Wrlfwl94 bpm (DEC 03 07:11) WNN367 mmHg (DEC 03 07:11) DBP77 mmHg (DEC 03 07:11) Measurements from flowsheet : Measurements 12/04/2023 7:11 EDT Height 167.6 cm Height in inches 66 inch(es) Admission Weight 72 kg Weight Lbs 158.4 lb Weir Body Weight 59.26 kg Admission Body Mass Index 25.63 m2 Pain assessment: Pain Assessment 12/04/2023 7:11 EDT Primary Pain Intensity 0 Pain Scale Type 0-10 Pain scale . General: Alert and oriented. Airway: Normal neck range of motion. Mallampati classification: II (soft palate, fauces, uvula visible). Head: Normocephalic. Dentition Evaluation: Intact, Own teeth. Neck: Full range of motion. Respiratory: Lungs are clear to auscultation. Cardiovascular: Normal rate. Heart Sounds: Normal. Gastrointestinal: Soft. Musculoskeletal Normal range of motion. Integumentary: Intact, Warm, Dry. Neurologic: Alert, Oriented. Review / Management Results review: Labs (Last four charted values) WBC 6.4(DEC 03) Hgb 13.6(DEC 03) Hct 40.5(DEC 03) Plt 220(DEC 03) , Lab results 12/04/2023 7:54 EDT SN - Preop - CTm Pt Ready for OR/Proced 12/04/2023 7:53 12/04/2023 7:52 EDT Respirations Unlabored Respiratory Pattern Regular Breath Sounds Auscultated Anterior and posterior All Lobes Breath Sounds Clear Skin Temperature Warm Skin Description [place], Normal for ethnicity, Dry Skin Integrity Intact Skin Moisture General Dry Extremity Movement Equal Characteristics of Speech Clear Level of Consciousness Alert Strength All Extremities Strong Tone All Extremities Normal Sensation All Extremities Intact Affect/Behavior Appropriate, Calm, Cooperative Orientation Oriented x 4 Liliana Motor (2) Moves 4 extremities voluntarily or on command Liliana Respirations (2) Spontaneous respiration without support, RR > 10 Liliana Blood Pressure (2) BP 20% above or below preanesthetic level Liliana Pulse (2) Pulse 20% above or below preanesthetic level Liliana Oxygen Saturation (2) 94% or more Liliana Level of Consciousness (2) Fully awake Liliana III Score 12 Assistive Device None Positioning Repositions self Mobility Assistance Level Independent Standard Safety ID band on, Allergy Band on, Call device within reach, Bed in low position, Wheels locked, Safety level maintained 12/04/2023 7:51 EDT IV Present Present Anesthesia Extension Set Applied Yes Pre-op Preparation Undergarments removed Allergy Band on and Verified Yes 12/04/2023 7:50 EDT Continuous IV Infusions LR Wrist Left 12/04/2023 20 gauge Peripheral IV Activity: Insert new site Peripheral IV Dressing Condition: Clean, Dry, Intact Peripheral IV Dressing Activity: Applied, Transparent dressing Peripheral IV Line Status/Patency: Continuous infusion Peripheral IV Site Condition: No complications Peripheral IV Equipment: Extension set, PRN Adaptor Peripheral IV Number of Attempts: 3 12/04/2023 7:48 EDT Lactated Ringers Injection 1,000 mL mL 12/04/2023 7:37 EDT SN - Preop - CTm Pt in SDS Room 12/04/2023 7:04 12/04/2023 7:17 EDT WBC 6.4 10^3/mcL RBC 4.47 10^6/mcL Hgb 13.6 G/dL Hct 40.5 % MCV 90.6 fL MCH 30.5 pg MCHC 33.7 G/dL RDW 12.6 % Platelet 220 10^3/mcL MPV 8.2 fL Neutrophil % 55.0 % Lymphocyte % 35.1 % Monocyte % 7.5 % Eosinophil % 1.7 % Basophil % 0.7 % Neutrophil, Absolute 3.5 10^3/mcL Lymphocyte, Absolute 2.2 10^3/mcL Monocyte, Absolute 0.5 10^3/mcL Eosinophil, Absolute 0.1 10^3/mcL Basophil, Absolute 0.0 10^3/mcL Test Urine Negative test (u) int test (u) int QC PRGUN Negative QC PRGUP Positive 12/04/2023 7:13 EDT Allergies Yes Hot Knife Cutter On Yes Consent Form Signed Yes Patient Dressed In Hospital gown History & Physical On Chart Yes Belongings At Bedside Necklace, Pants, Rings, Shirt, Shoes, Socks, Undergarments NPO Status Maintained Patient ID Band on and Verified Yes Implants Verified Yes Pacemaker/AICD Verified Yes Site Verified by Patient/Family Yes Blood Consent Signed Yes Last Fluid Intake 12/03/2023 22:00 Last Food Intake 12/03/2023 22:00 Last Void 12/04/2023 7:15 12/04/2023 7:11 EDT Height 167.6 cm Height in inches 66 inch(es) Admission Weight 72 kg Weight Lbs 158.4 lb Weir Body Weight 59.26 kg Admission Body Mass Index 25.63 m2 Temperature Temporal Artery 36.4 DegC Apical Heart Rate 63 bpm Respiratory Rate 16 br/min Systolic Blood Pressure Non-Invasive 128 mmHg Diastolic Blood Pressure Non-Invasive 77 mmHg Primary Pain Intensity 0 Pain Scale Type 0-10 Pain scale Heart Rhythm Regular Oxygen Therapy Room air Oxygen Saturation 97 % 12/04/2023 7:05 EDT Designated Person #1 We May Share BECKA Saldana [phone] Designated Person #1 Relationship Spouse Privacy Restrictions Requested None Status No, per patient Sensory Deficits None Sleep Apnea Snore Yes Sleep Apnea Tired No Sleep Apnea Obstruction No Sleep Apnea Pressure No Sleep Apnea BMI No Sleep Apnea Age No Sleep Apnea Neck No Sleep Apnea Gender No Sleep Apnea Score 1 Diagnosed With Sleep Apnea No Advanced Directives No - refuses information Infectious Disease Symptoms Patient states no symptoms Infectious Disease Recent Exposure No Alcohol and Drug Use No Employee of Institutional Living No Health Care Employee No History of Exposure to TB No History of Positive Chest X-Ray for TB No History of Positive TB Skin Test No Homeless No Known Immunosuppression No Recent Immigrant No Resident of Institutional Living No Bloody Sputum No Fatigue No Fever No Loss of Appetite No Night Sweats No Persistent Cough > 3 Weeks No Weight Loss No Pre-Op Patient Education NPO after midnight, No smoking after midnight, No makeup, No jewelry, Aware of surgery location, Pre-op education done, No ordered medications SN - Preprocedure Comments Spoke with patient, Verbalizes/Nonverbally indicates understanding Barriers to Learning None evident Teaching Method Explanation, Printed materials Preferred Spoken Language Emirati Preferred Written Language Emirati Teaching Evaluation Verbalizes/Nonverbally indicates understanding Safety Brochure Information Reviewed Yes [facility] No Information Given by Patient Patient's Current Physicians Patient's Current Physicians Discharge To, Anticipated Home with family care Prev Test Positive/Diagnosis w/COVID-19 Yes Previous COVID-19 Positive Date 2023 Current Quarantine/Isolated any Illness No Any Contact with Sick Animals/Birds No Traveled Anywhere in Last 30 Days No Lost Weight Unintentionally Recently No Eat Poorly Due to Decreased Appetite No Total MST Score 0 No Personal Devices, Patient Valuables Glasses Anesthesia/Transfusions Prior anesthesia Admission Note-Nursing Same Day Patient History . Assessment and Plan [place] [employer] Anesthesiologists (ASA) physical status classification: Class I. Anesthetic Preoperative Plan Premedication: intravenous. Anesthetic technique: General. Induction: intravenously. Maintenance airway: Laryngeal mask airway. Postoperative pain management: Per surgeon. Risks discussed: nausea, vomiting, headache, sore throat, dental injury, hypotension, allergic reaction, serious complications. Informed consent: signed by patient. Digitally Signed by DIONNA BRUCE on 12/04/2023 08:16 AM Digitally Signed by DIONNA BRUCE on 12/04/2023 09:23 AM [facility] 07-17-2023 Instructions Kathi Ashby APRN.CNP - 07/17/2023 6:41 PM EDT [facility] PATIENT INFO POISON MESHA INTRODUCTION When the skin comes in direct contact with an irritating or allergy-causing substance, contact dermatitis can develop. Exposure to poison mesha, poison oak, and poison sumac cause more cases of allergic contact dermatitis than all other plant families combined. People of all ethnicities and skin types are at risk for developing poison mesha dermatitis. The severity of the reaction tends to decrease with age, especially in people who have had mild reactions in the past. People in occupations such as firefighting, forestry, and farming are at a higher risk of poison mesha dermatitis because of repeated exposure to toxic plants. POISON MESHA CAUSES Poison mesha, poison oak, and poison sumac plants all contain a compound called urushiol, which is a light, colorless oil that is found on the fruit, leaves, stem, root, and sap of the plant. When urushiol is exposed to air, it turns brown and the plant leaves develop small black spots. There are several ways that you can be exposed to urushiol: By touching the sap or rubbing against the leaves of the toxic plant By touching something that has urushiol on it, such as animal fur or garden tools By breathing in smoke when toxic plants are burned Ginkgo fruit and the skin of mangoes also contain urushiol and can produce symptoms similar to poison mesha dermatitis. IDENTIFYING POISON MESHA Leaves of three, let them be is a phrase often used to identify plants that cause poison mesha dermatitis. Generally, poison mesha and poison oak have three leaves with flowering branches on a single stem. Poison sumac has five, seven, or more leaves that angle upward toward the top of the stem. Some types of poison mesha produce a green or off-white fruit in susan, and in some cases, black dots form on the plants' leaves. It is not always possible to identify the plant by the leaves alone since the appearance can vary depending upon the season, growth cycle, region, and climate. Poison mesha, oak, and sumac plants grow in many areas across the [facility] and throughout the world. East of the [facility], poison mesha commonly grows as a climbing vine. In the [place] area and west, poison mesha tends to grow low to the ground as a shrub. Poison oak most often grows west of the [facility], and poison sumac inhabits boggy areas in the southeastern part of the [facility]. The plants are not usually found in areas at high elevations or in desert climates. POISON MESHA SIGNS AND SYMPTOMS After contact with urushiol, approximately 50 percent of people develop signs and symptoms of poison mesha dermatitis. The symptoms and severity differ from person to person. The most common signs and symptoms of poison mesha dermatitis are: Intense itching Skin swelling Skin redness These symptoms usually develop within four hours to four days after exposure to the urushiol. After the initial symptoms, you will develop fluid-filled blisters in a line or streak-like pattern. The symptoms are worst within 1 to 14 days after touching the plant, but can develop up to 21 days later if you have never been exposed to urushiol before. The blisters can occur at different times in different people; blisters can develop on the arms several days after blisters on the hands developed. This does not mean that the reaction is spreading from one area of the body to the other. The fluid that leaks from blisters does not cause symptoms. Poison mesha dermatitis is not contagious and cannot be passed from person to person. However, urushiol can be carried under fingernails and on clothes; if another person comes in contact with the urushiol, they can develop poison mesha dermatitis. POISON MESHA DIAGNOSIS Poison mesha is usually diagnosed based upon how your skin looks. Further testing is not usually necessary. POISON MESHA TREATMENT Poison mesha dermatitis usually resolves within one to three weeks without treatment. Treatments that may help relieve the itching, soreness, and discomfort caused by poison mesha dermatitis include: Skin treatments -- For some people, adding oatmeal to a bath, applying cool wet compresses, and applying calamine lotion may help to relieve itching. Once the blisters begin weeping fluid, astringents containing aluminum acetate (Dalia's solution) and [place]ome[place] may help to relieve the rash. Antihistamines -- Antihistamines may help to relieve itching caused by poison mesha dermatitis. Some antihistamines make you sleepy while others do not. Antihistamines that make you sleepy (eg, diphenhydramine [Benadryl ]) may be helpful if you have trouble sleeping due to itching. Other formulas (eg, loratadine [Claritin ], cetirizine [Zyrtec ]) may be preferable for daytime. Steroid creams -- Steroid creams may be helpful if they are used during the first few days after symptoms develop. Low potency steroid creams, such as 1 percent hydrocortisone (available in the [place] without prescription) are not usually helpful. A stronger prescription formula may be helpful. Steroids -- If you develop severe symptoms or the rash covers a large area (especially on the face or genitals), you may need steroid pills or injections (eg, prednisone) to help relieve itching and swelling. Pills are usually given for 14 to 21 days, with the dosage slowly decreased over time. Antibiotics -- Skin infections are a potential complication of poison mesha, especially if you scratch your skin. If you develop a skin infection because of poison mesha dermatitis, you may need antibiotics to treat the infection. Other treatments -- An herbal therapy called jewelweed extract has been used to treat poison mesha dermatitis, although it has not been proven effective. You should not use antihistamine creams or lotions, anesthetic creams containing benzocaine, or antibiotic creams containing neomycin or bacitracin to the skin. These creams or ointments could make the rash worse. POISON MESHA PREVENTION The best way to prevent poison mesha dermatitis is to identify and avoid the plants that cause it. These plants can irritate the skin year round, even during the winter months, and can still cause a reaction years after the plant dies. Wear protective clothing, including long sleeves and pants when working in areas where toxic plants may be found. Keep in mind that the resin and oils from the toxic plants can be carried on clothing, pets, and under fingernails. Wear heavy-duty vinyl gloves when doing yard work or gardening. The oils from toxic plants can seep through latex or rubber gloves. After coming in contact with poison mesha, remove any contaminated clothing and gently wash (do not scrub or rub) you skin and under the fingernails with mild soap and water as soon as possible. Washing within two hours after exposure can reduce the likelihood and severity of symptoms; washing the skin after you have symptoms will not help. Creams and ointments that create a barrier between the skin and the urushiol oil may be somewhat effective for people who are frequently exposed to poison mesha. Bentoquatam (Mesha Block ) is one type of barrier cream that may prevent poison mesha dermatitis. It must be reapplied every four hours and it leaves a marisa residue on the skin. Avoid burning poisonous vegetation, which can disperse the plant particles in the smoke, irritate the skin, and cause poison mesha dermatitis. documented in this encounter [facility] 07-17-2023 Note HNO ID: [id number] Author: KATHI ASHBY APRN.ADRI Service: ? Author Type: Nurse Practitioner Type: Progress Notes Filed: 07/17/2023 18:42 Note Text: Subjective HPI HPI Manju Saldana is a 42 year old female who presents today for CC of itchy rash. This started 5 days ago. Has tried otc medication for relief. Symptoms are worsened by nothing. Risk factors recent exposure to plants/yardwork. Denies possibility of being . .Patient presents with: Rash: Rash all over body x 5 days PAST MEDICAL HISTORY Diagnosis Date NEGATIVE MEDICAL HISTORY PAST SURGICAL HISTORY Procedure Laterality Date DILATION AND CURETTAGE DXAND/THER NONOBSTETRIC Dilation AND curettage ALLERGIES Asa [Aspirin] MEDICATIONS BECK 24 FE 1 mg-20 mcg (24)/75 mg (4) take 1 tablet by mouth daily --OKAY TO SKIP PLACEBO TALBETS AND RESTART THE NEXT PACK ON DAY 24 lidocaine viscous (LIDOCAINE VISCOUS) 2 % solution Gargle and spit 10-15mLs every 3-4 hours as need for throat discomfort. (Patient not taking: Reported on 02/16/2020) guaiFENesin (MUCINEX) 600 mg 12 hr tablet Take 2 tablets by mouth twice daily. (Patient not taking: Reported on 02/16/2020) benzonatate (TESSALON PERLES) 100 mg capsule Take 1 capsule by mouth three times daily as needed. (Patient not taking: Reported on 02/16/2020) triamcinolone (KENALOG) 0.025 % cream Apply 1 application to affected area twice daily. (Patient not taking: Reported on 01/12/2019) Uussyeul-Ja-Wtd-Fe-FA ORAL Tab TAKE ONE DAILY (Patient not taking: No sig reported) FAMILY HISTORY Problem Relation Age of Onset Stroke Maternal Grandmother Emphysema Maternal Grandfather Heart Maternal Grandmother Hypertension Maternal Grandmother Social History Tobacco Use Smoking status: Former Packs/day: 1.00 Years: 10.00 Additional pack years: 0.00 Total pack years: 10.00 Types: Cigarettes Smokeless tobacco: Never Substance Use Topics Alcohol use: No Drug use: No Review of Systems Constitutional: Negative for chills and fever. Skin: Positive for itching and rash (Positive for clear, watery drainage. Denies warmth and purulent drainage. ). Objective Blood pressure 137/84, pulse 71, temperature 36.7 ?C (98 ?F), resp. rate 18, weight 72 kg (158 lb 11.7 oz), last menstrual period 07/03/2023, SpO2 97%. Physical Exam Constitutional: General: She is not in acute distress. Appearance: She is not toxic-appearing or diaphoretic. HENT: Head: Normocephalic and atraumatic. Skin: General: Skin is warm and dry. Findings: Rash present. Rash is vesicular (distribution linear ). Neurological: Mental Status: She is alert and oriented to person, place, and time. ASSESSMENT/PLAN: 1. Rhus dermatitis - ICD9: 692.6, ICD10: L25.5 - Oral Steriod tx -Prednisone taper - Topical steriod tx with Rx for steriod cream/ointment- see orders - discussed skin care of rash - follow up if symptoms persist or worsen. - PREDNISONE 10 MG TABLET - TRIAMCINOLONE ACETONIDE 0.1 % TOPICAL CREAM Kathi Ashby APRN.[facility] 07-17-2023 History of Present illness Narrative Images from the original note were not included. Subjective HPI HPI Manju Saldana is a 42 year old female who presents today for CC of itchy rash. This started 5 days ago. Has tried otc medication for relief. Symptoms are worsened by nothing. Risk factors recent exposure to plants/yardwork. Denies possibility of being . .Patient presents with: Rash: Rash all over body x 5 days PAST MEDICAL HISTORY Diagnosis Date NEGATIVE MEDICAL HISTORY PAST SURGICAL HISTORY Procedure Laterality Date DILATION & CURETTAGE DX&/THER NONOBSTETRIC Dilation & curettage ALLERGIES Asa [Aspirin] MEDICATIONS BECK 24 FE 1 mg-20 mcg (24)/75 mg (4) take 1 tablet by mouth daily --OKAY TO SKIP PLACEBO TALBETS AND RESTART THE NEXT PACK ON DAY 24 lidocaine viscous (LIDOCAINE VISCOUS) 2 % solution Gargle and spit 10-15mLs every 3-4 hours as need for throat discomfort. (Patient not taking: Reported on 02/16/2020) guaiFENesin (MUCINEX) 600 mg 12 hr tablet Take 2 tablets by mouth twice daily. (Patient not taking: Reported on 02/16/2020) benzonatate (TESSALON PERLES) 100 mg capsule Take 1 capsule by mouth three times daily as needed. (Patient not taking: Reported on 02/16/2020) triamcinolone (KENALOG) 0.025 % cream Apply 1 application to affected area twice daily. (Patient not taking: Reported on 01/12/2019) Ezlwvueu-Ow-Bqp-Fe-FA ORAL Tab TAKE ONE DAILY (Patient not taking: No sig reported) FAMILY HISTORY Problem Relation Age of Onset Stroke Maternal Grandmother Emphysema Maternal Grandfather Heart Maternal Grandmother Hypertension Maternal Grandmother Social History Tobacco Use Smoking status: Former Packs/day: 1.00 Years: 10.00 Additional pack years: 0.00 Total pack years: 10.00 Types: Cigarettes Smokeless tobacco: Never Substance Use Topics Alcohol use: No Drug use: No Review of Systems Constitutional: Negative for chills and fever. Skin: Positive for itching and rash (Positive for clear, watery drainage. Denies warmth and purulent drainage. ). Objective Blood pressure 137/84, pulse 71, temperature 36.7 C (98 F), resp. rate 18, weight 72 kg (158 lb 11.7 oz), last menstrual period 07/03/2023, SpO2 97%. Physical Exam Constitutional: General: She is not in acute distress. Appearance: She is not toxic-appearing or diaphoretic. HENT: Head: Normocephalic and atraumatic. Skin: General: Skin is warm and dry. Findings: Rash present. Rash is vesicular (distribution linear ). Neurological: Mental Status: She is alert and oriented to person, place, and time. ASSESSMENT/PLAN: 1. Rhus dermatitis - ICD9: 692.6, ICD10: L25.5 - Oral Steriod tx -Prednisone taper - Topical steriod tx with Rx for steriod cream/ointment- see orders - discussed skin care of rash - follow up if symptoms persist or worsen. - PREDNISONE 10 MG TABLET - TRIAMCINOLONE ACETONIDE 0.1 % TOPICAL CREAM Kathi Ashby APRN.PUBLIC HEALTH AIDE documented in this encounter [facility] 07-07-2022 Hospital Discharge instructions Patient Education 07/07/2022 18:25:22 Myalgias Myalgias Myalgias are another word for muscle aches and soreness. This is a symptom, not a disease. Myalgias can have many causes. A cold, the flu, or an acute infection can cause them. So can any illness with a high fever. They may happen after exertion (such as heavy exercise) or injury (such as an accident or fall). Some medicines (such as statins and certain antidepressants) can cause myalgias. They can also be a symptom of chronic or ongoing medical problems (such as lupus, chronic fatigue, or hypothyroidism). With these illnesses, other serious symptoms often occur in addition to muscle pain and soreness. Myalgias most often go away on their own. If they don't go away, come back, or are severe, testing may be needed to help find the cause. Home care Rest until you feel better. Follow instructions that you were given for how to care for yourself. This may depend on the cause of your myalgias. If myalgia is thought to be due to a medicine, be sure to talk to the doctor that prescribed the medicine about the best course of action. To control pain, take prescription or yqln-kkm-ohiqviz medicines as directed. Unless told not to, you can try acetaminophen or ibuprofen. Follow-up care Follow up with your healthcare provider or as advised. If your symptoms do not go away in a few days or if they come back, follow up with your healthcare provider for an exam and testing. When to see medical advice Call your healthcare provider for any of the following: Fever of 100.4 F (38 C) or higher, or as directed by your healthcare provider Pain that gets worse and not better, or that goes away and comes back New joint pains New rash Severe headache, neck pain, drowsiness, or confusion [id number] [employer] [place] [id number]. All rights reserved. This information is not intended as a substitute for professional medical care. Always follow your healthcare professional's instructions. 07/07/2022 18:25:20 Hypertension, To Be Confirmed High Blood Pressure, To Be Confirmed, No Treatment Your blood pressure today was higher than normal. Sometimes anxiety or pain can cause a temporary rise in blood pressure. It later returns to normal. Blood pressure that is high only one time doesn t mean that you have high blood pressure (hypertension). High blood pressure is a chronic illness. But you should have your blood pressure measured again within the next few days to find out if it s still high. Blood pressure measurements are given as 2 numbers. Systolic blood pressure is the upper number. This is the pressure when the heart contracts. Diastolic blood pressure is the lower number. This is the pressure when the heart relaxes between beats. You will see your blood pressure readings written together. For example, a person with a systolic pressure of 118 and a diastolic pressure of 78 will have 118/78 written in the medical record. Blood pressure is categorized as normal, elevated, or stage 1 or stage 2 high blood pressure: Normal blood pressure is systolic of less than 120 and diastolic of less than 80 (120/80) Elevated blood pressure is systolic of 120 to 129 and diastolic less than 80 Stage 1 high blood pressure is systolic is 130 to 139 or diastolic between 80 to 89 Stage 2 high blood pressure is when systolic is 140 or higher or the diastolic is 90 or higher Lifestyle changes such as weight loss, exercise, and quitting smoking, can help manage your blood pressure. Have your blood pressure checked regularly to be sure it is under control. Home care To track your blood pressure, your provider may ask you to come into the office at different times and on different days. If your healthcare provider asks you to check your readings at home, ask him or her what times of the day to test and for how many days. Before you leave the office, ask your provider to show you how to take your blood pressure and be sure to ask questions if you don't understand something. Consider buying an automatic blood pressure monitor. Ask your provider for a recommendation as well as the proper size cuff to fit your arm. You can buy blood pressure monitors at most pharmacies. The [place] [employer] recommends the following guidelines for home blood pressure monitoring: Don't smoke or drink coffee or other caffeinated drinks for 30 minutes before taking your blood pressure. Go to the bathroom before the test. Relax for 5 minutes before taking the measurement. Sit with your back supported (don't sit on a couch or soft chair); keep your feet on the floor uncrossed. Place your arm on a solid flat surface (like a table) with the upper part of the arm at heart level. Place the middle of the cuff directly above the bend of the elbow. Check the monitor's instruction manual for an illustration. Take multiple readings. When you measure, take 2 to 3 readings one minute apart and record all of the results. Take your blood pressure at the same time every day, or as your healthcare provider recommends. Record the date, time, and blood pressure reading. Take the record with you to your next medical appointment. If your blood pressure monitor has a built-in memory, simply take the monitor with you to your next appointment. Call your provider if you have several high readings. Don't be frightened by a single high blood pressure reading, but if you get several high readings, check in with your healthcare provider. Note: When blood pressure reaches a systolic (top number) of 180 or higher OR diastolic (bottom number) of 110 or higher, seek emergency medical treatment. Follow-up care Keep all of your follow up appointments. If your blood pressure is more than 120 over 80 on 2 out of 3 days, you will need to follow up with your healthcare provider for more evaluation and treatment. Don t put this off! High blood pressure can be treated. High blood pressure that s not treated raises your risk for heart attack, heart failure, and stroke. When to seek medical advice Call your healthcare provider right away if any of these occur: Blood pressure reaches a systolic (top number) of 180 or higher, OR diastolic (bottom number) of 110 or higher Chest pain or shortness of breath Severe headache Throbbing or rushing sound in the ears Nosebleed Sudden severe pain in your belly (abdomen) Extreme drowsiness, confusion, or fainting Dizziness or dizziness with spinning sensation (vertigo) Weakness of an arm or leg or one side of the face You have problems speaking or seeing [phone] [employer]. [address] [place] [address]. All rights reserved. This information is not intended as a substitute for professional medical care. Always follow your healthcare professional's instructions. Follow Up Care 07/07/2022 17:44:02 With:BRAD SHAI Address: [address] [facility] [place] [address] [phone] Business (1) When:2-4 days Comments:Schedule appointment as soon as possibleReturn to ED if symptoms worsenFollow up for blood pressureReturn in am for duplex ultrasound and if positive return to [facility] 07-07-2022 Note Discharge Instructions Thank you for allowing [facility] to assist you with your healthcare needs. The following is important discharge information regarding your hospital visit. Diagnosis from Today's Visit Hypertension Myalgia Lower leg pain-swelling What to Do Next Instructions from Your Care Team Discharge ED Outpatient Vascular Lab - Ordered -- Test Requested: venous doppler, Lower extremity, Right, Test Reason: Pain, Mon-Fri 8am-4:30pm: Call [phone] at 7:30am to schedule a same day appointment for testing. Please be aware there may be a short wait time. Discharge Return to Work, School, or Sports (Return to Work, School, or Sports) - Ordered -- 07/09/22, May return to: work, 07/07/22 18:59:00 EDT Post Acute Orders No qualifying data available. You Need to Schedule the Following Appointments Follow Up with BRAD GIBBONS When Within 2-4 days Why: Schedule appointment as soon as possible Return to ED if symptoms worsen Follow up for blood pressure Return in am for duplex ultrasound and if positive return to ER Where: [address] [facility] [place] [address] [phone] Business (1) Allergies aspirin (Upset Stomach) Medications Please ask your primary doctor or pharmacist before taking any other medication not listed, including over the counter drugs, herbal medications, vitamins and or supplements as they may interact with your home medications. Please take this list to your next doctor s visit. Bring all medications you take, including over the counter medications, herbals and other supplements with you to your doctor s visit. Patients and families are reminded to discard old lists and to update any records with all medication providers or retail pharmacies. Education Materials Myalgias Myalgias are another word for muscle aches and soreness. This is a symptom, not a disease. Myalgias can have many causes. A cold, the flu, or an acute infection can cause them. So can any illness with a high fever. They may happen after exertion (such as heavy exercise) or injury (such as an accident or fall). Some medicines (such as statins and certain antidepressants) can cause myalgias. They can also be a symptom of chronic or ongoing medical problems (such as lupus, chronic fatigue, or hypothyroidism). With these illnesses, other serious symptoms often occur in addition to muscle pain and soreness. Myalgias most often go away on their own. If they don't go away, come back, or are severe, testing may be needed to help find the cause. Home care Rest until you feel better. Follow instructions that you were given for how to care for yourself. This may depend on the cause of your myalgias. If myalgia is thought to be due to a medicine, be sure to talk to the doctor that prescribed the medicine about the best course of action. To control pain, take prescription or whsh-wlx-eicdmam medicines as directed. Unless told not to, you can try acetaminophen or ibuprofen. Follow-up care Follow up with your healthcare provider or as advised. If your symptoms do not go away in a few days or if they come back, follow up with your healthcare provider for an exam and testing. When to see medical advice Call your healthcare provider for any of the following: Fever of 100.4 F (38 C) or higher, or as directed by your healthcare provider Pain that gets worse and not better, or that goes away and comes back New joint pains New rash Severe headache, neck pain, drowsiness, or confusion [id number] [employer]. [address] [place] [address]. All rights reserved. This information is not intended as a substitute for professional medical care. Always follow your healthcare professional's instructions. High Blood Pressure, To Be Confirmed, No Treatment Your blood pressure today was higher than normal. Sometimes anxiety or pain can cause a temporary rise in blood pressure. It later returns to normal. Blood pressure that is high only one time doesn t mean that you have high blood pressure (hypertension). High blood pressure is a chronic illness. But you should have your blood pressure measured again within the next few days to find out if it s still high. Blood pressure measurements are given as 2 numbers. Systolic blood pressure is the upper number. This is the pressure when the heart contracts. Diastolic blood pressure is the lower number. This is the pressure when the heart relaxes between beats. You will see your blood pressure readings written together. For example, a person with a systolic pressure of 118 and a diastolic pressure of 78 will have 118/78 written in the medical record. Blood pressure is categorized as normal, elevated, or stage 1 or stage 2 high blood pressure: Normal blood pressure is systolic of less than 120 and diastolic of less than 80 (120/80) Elevated blood pressure is systolic of 120 to 129 and diastolic less than 80 Stage 1 high blood pressure is systolic is 130 to 139 or diastolic between 80 to 89 Stage 2 high blood pressure is when systolic is 140 or higher or the diastolic is 90 or higher Lifestyle changes such as weight loss, exercise, and quitting smoking, can help manage your blood pressure. Have your blood pressure checked regularly to be sure it is under control. Home care To track your blood pressure, your provider may ask you to come into the office at different times and on different days. If your healthcare provider asks you to check your readings at home, ask him or her what times of the day to test and for how many days. Before you leave the office, ask your provider to show you how to take your blood pressure and be sure to ask questions if you don't understand something. Consider buying an automatic blood pressure monitor. Ask your provider for a recommendation as well as the proper size cuff to fit your arm. You can buy blood pressure monitors at most pharmacies. The [place] [employer] recommends the following guidelines for home blood pressure monitoring: Don't smoke or drink coffee or other caffeinated drinks for 30 minutes before taking your blood pressure. Go to the bathroom before the test. Relax for 5 minutes before taking the measurement. Sit with your back supported (don't sit on a couch or soft chair); keep your feet on the floor uncrossed. Place your arm on a solid flat surface (like a table) with the upper part of the arm at heart level. Place the middle of the cuff directly above the bend of the elbow. Check the monitor's instruction manual for an illustration. Take multiple readings. When you measure, take 2 to 3 readings one minute apart and record all of the results. Take your blood pressure at the same time every day, or as your healthcare provider recommends. Record the date, time, and blood pressure reading. Take the record with you to your next medical appointment. If your blood pressure monitor has a built-in memory, simply take the monitor with you to your next appointment. Call your provider if you have several high readings. Don't be frightened by a single high blood pressure reading, but if you get several high readings, check in with your healthcare provider. Note: When blood pressure reaches a systolic (top number) of 180 or higher OR diastolic (bottom number) of 110 or higher, seek emergency medical treatment. Follow-up care Keep all of your follow up appointments. If your blood pressure is more than 120 over 80 on 2 out of 3 days, you will need to follow up with your healthcare provider for more evaluation and treatment. Don t put this off! High blood pressure can be treated. High blood pressure that s not treated raises your risk for heart attack, heart failure, and stroke. When to seek medical advice Call your healthcare provider right away if any of these occur: Blood pressure reaches a systolic (top number) of 180 or higher, OR diastolic (bottom number) of 110 or higher Chest pain or shortness of breath Severe headache Throbbing or rushing sound in the ears Nosebleed Sudden severe pain in your belly (abdomen) Extreme drowsiness, confusion, or fainting Dizziness or dizziness with spinning sensation (vertigo) Weakness of an arm or leg or one side of the face You have problems speaking or seeing [id number] [employer]. [address] [place] [address]. All rights reserved. This information is not intended as a substitute for professional medical care. Always follow your healthcare professional's instructions. Additional Information VACCINATE! IT SAVES LIVES! Members of the community who have not yet received the COVID-19 vaccine and would like to receive it can visit one of [facility] vaccine clinics. There are many vaccine clinic locations within the [facility]. For locations and available times, please visit www.gettheshot.coronavirus.[place].gov /. It is important to note that some COVID mobile vaccine clinics are held outdoors and may be canceled in rainy or stormy conditions. To learn more about pediatric vaccinations (ages 5-11), we invite you to visit the [facility] webpage. [email or web address]-[email or web address] -[email or web address]-Questions.html To learn more about the COVID-19 vaccine, we invite you to visit the CDC website for a list of frequently asked questions. https://www.cdc.gov/coronavirus/201 9-ncov/vaccines/faq.html [employer] Patient Portal Access Instructions: Stay connected with your healthcare team and access your personal medical information anytime with the [employer] Patient Portal. If you would like a full copy of your medical records please contact the [facility] Medical Records Department Friday through Friday between 8a.m. and 4:30p.m. Please follow the directions below to access the portal: 1.Access the email account you provided upon registration to the [facility].2.Look for an invitation email from [facility].3.Open the email and access the invitation link: Accept Invitation to [employer]4.Fill in the required brar to create your account. Sign into [email or web address] with your username and password that you created in the above steps to stay up to date. You can then view a summary of results, a summary of your visits, and the ability to download your summaries to your computer or send the information securely to a physician. Remember that your healthcare information is confidential, so carefully consider who you will allow to register on the [facility] Patient Portal for access to your information. You can also access the [facility] Patient Portal on the [email or web address]. Simply click on Health Records under Health Data and then click on the [facility] logo. HOW TO SAFELY DISPOSE OF PRESCRIPTION MEDICATIONS Please use one of the following methods to safely dispose of your unused medications. 1.Use a drug disposal kit: the drug disposal pouch allows you to safely discard your old and unused drugs. Ask your nurse to give you one when you are discharged.2.Visit a local take-back location: Many local pharmacies and police departments have programs that collect old and unwanted prescription drugs. Call your local pharmacy or go to http://[employer]/7T1Qz6e to find one close to you.3.Make use of household items: Use cat litter or old coffee grounds to dispose medications if other options are not available. Mix your drugs with these household products, seal them in an airtight container and throw it into the garbage. Call [facility]: [phone] to be sure your drugs can be disposed of in this way. Some medicines may require a different approach.4.Never flush your medications down the toilet. IF YOU HAVE BEEN PRESCRIBED AN OPIOIDS FOR PAIN If you have been prescribed an opioid (such as hydrocodone, oxycodone or morphine), it is critical to understand the possible side effects and risks of opioid pain medications. Even when taken as directed, opioids can have several side effects including: Tolerance, meaning you might need to take more of a medication for the same pain relief. Nausea, vomiting and/or constipation. Sleepiness, dizziness, dry mouth, confusion, depression or itching. Physical dependence, meaning you have withdrawal symptoms when a medication is stopped ? this can develop within a few days. KNOW YOUR RESPONSIBILITIES It is important to know exactly how much and how often to take the opioid pain medications you are prescribed. Never take opioids in higher amounts or more often than prescribed. Do not combine opioids with alcohol or other drugs that cause drowsiness, such as benzodiazepines, also known as benzos, including diazepam and alprazolam, muscle relaxants or sleep aids. Never sell or share prescription opioids. This is illegal. Store opioids in a secure place and out of reach of others (including children, family, friends and visitors). The last page(s) of this document has been signed and retained as a CHART COPY Signatures Patient Education Materials Myalgias Hypertension, To Be Confirmed Medication Leaflets My discharge plan and instructions have been reviewed and explained to me and LES Carrera DANICA D understand my current condition and have read and understand these discharge instructions. I have received a written copy of the plan/instructions. If I have questions, I am aware that I should contact my doctor. 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 Duration of symptoms 8 days. Associated symptoms listed above. States son tested positive for strep throat. 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 Most bothersome symptom today is sinus pressure. Does have some shortness of breath only with coughing. Denies any fever body aches chills productive cough chest pain shortness of breath pleuritic pain hemoptysis nausea vomiting abdominal pain change in bowel or bladder habits. Past medical history prescription medication use and allergies reviewed. .Patient presents with: Sore Throat: head and chest congestion, cough, sob x 1 week PAST MEDICAL HISTORY Diagnosis Date NEGATIVE MEDICAL HISTORY PAST SURGICAL HISTORY Procedure Laterality Date DILATION & CURETTAGE DX&/THER NONOBSTETRIC Dilation & curettage ALLERGIES Asa [Aspirin] MEDICATIONS BECK 24 FE 1 mg-20 mcg (24)/75 mg (4) take 1 tablet by mouth daily --OKAY TO SKIP PLACEBO TALBETS AND RESTART THE NEXT PACK ON DAY 24 lidocaine viscous (LIDOCAINE VISCOUS) 2 % solution Gargle and spit 10-15mLs every 3-4 hours as need for throat discomfort. (Patient not taking: Reported on 02/16/2020 ) guaiFENesin (MUCINEX) 600 mg 12 hr tablet Take 2 tablets by mouth twice daily. (Patient not taking: Reported on 02/16/2020 ) benzonatate (TESSALON PERLES) 100 mg capsule Take 1 capsule by mouth three times daily as needed. (Patient not taking: Reported on 02/16/2020 ) triamcinolone (KENALOG) 0.025 % cream Apply 1 application to affected area twice daily. (Patient not taking: Reported on 01/12/2019 ) Fkykpdus-Gh-Cpk-Fe-FA ORAL Tab TAKE ONE DAILY (Patient not taking: ) FAMILY HISTORY Problem Relation Age of Onset Stroke Maternal Grandmother Emphysema Maternal Grandfather Heart Maternal Grandmother Hypertension Maternal Grandmother Social History Tobacco Use Smoking status: Former Packs/day: 1.00 Years: 10.00 Pack years: 10.00 Types: Cigarettes Smokeless tobacco: Never Substance Use Topics Alcohol use: No Drug use: No BP 120/72 Pulse 72 Temp 36.6 C (97.8 F) Resp 16 Wt 74.4 kg (164 lb) SpO2 98% Review of Systems Constitutional: Negative for chills, fever and malaise/fatigue. HENT: Positive for congestion, sinus pain and sore throat. Negative for ear discharge and ear pain. Eyes: Negative for blurred vision, pain, discharge and redness. Respiratory: Positive for cough. Negative for hemoptysis, sputum production, shortness of breath, wheezing and stridor. Cardiovascular: Negative for chest pain. Gastrointestinal: Negative for abdominal pain, diarrhea, nausea and vomiting. Musculoskeletal: Negative for myalgias. Skin: Negative for itching and rash. Neurological: Positive for headaches. Negative for dizziness. Objective Physical Exam Constitutional: General: She is not in acute distress. Appearance: She is not diaphoretic. HENT: Head: Normocephalic. Jaw: No trismus, tenderness or pain on movement. Right Ear: Tympanic membrane, ear canal and external ear normal. Left Ear: Tympanic membrane, ear canal and external ear normal. Nose: Right Sinus: Maxillary sinus tenderness present. Left Sinus: Maxillary sinus tenderness present. Mouth/Throat: Lips: [place]. Mouth: Mucous membranes are moist. Pharynx: Oropharynx is clear. Uvula midline. Posterior oropharyngeal erythema present. No pharyngeal swelling, oropharyngeal exudate or uvula swelling. Eyes: Conjunctiva/sclera: Conjunctivae normal. Pupils: Pupils are equal, round, and reactive to light. Cardiovascular: Rate and Rhythm: Normal rate and regular rhythm. Heart sounds: Normal heart sounds. Pulmonary: Effort: Pulmonary effort is normal. No tachypnea, accessory muscle usage or respiratory distress. Breath sounds: Normal breath sounds. No stridor. No wheezing, rhonchi or rales. Abdominal: General: There is no distension. Palpations: Abdomen is soft. Tenderness: There is no abdominal tenderness. There is no guarding or rebound. Musculoskeletal: Cervical back: Normal range of motion and neck supple. No rigidity or tenderness. Lymphadenopathy: Cervical: No cervical adenopathy. Skin: General: Skin is warm and dry. Neurological: Mental Status: She is alert and oriented to person, place, and time. ASSESSMENT/PLAN: 1. Sore throat - ICD9: 462, ICD10: J02.9 (primary diagnosis) - STREP A MOLECULAR (POC) 2. Sinobronchitis - ICD9: 473.9, 490, ICD10: J32.9, J40 Patient diagnosed with sinobronchitis. Strep test was negative. Placed on Augmentin. Red flags proper elevation discussed. Patient was educated on supportive therapies. Patient will follow up with primary care provider as needed. Patient was instructed to immediately proceed to emergency room for any new, worsening, or symptoms lasting longer than anticipated. The patient's clinical presentation is otherwise unremarkable at this time. Based on exam and clinical finding, the patient is stable for discharge. Plan of care was discussed with patient. Patient verbalizes understanding and agrees to plan of care. This note was generated using [employer] software. It may contain errors in wording, punctuation, or spelling. Ascencion Spence APRN.ADRI documented in this encounter [facility] 01-04-2022 Evaluation + Plan note Future Scheduled TestsMA Mammo Screening Bilateral w/ [place] 01/04/22 [facility] Evaluation + Plan note Future Appointments Appointment Date:07/10/2022 01:20:00 PM Scheduled Provider:BRAD GIBBONS DO Location:[facility] Appointment Type:PC OV ED Follow Up [facility] Evaluation + Plan note Future Appointments Appointment Date:07/17/2022 03:35:00 PM Scheduled Provider:BRAD GIBBONS DO Location:[facility] Appointment Type:PC OV Follow Up [facility] Evaluation + Plan note Future Appointments [facility] Evaluation note Diagnosis Sore throat- Primary Acute pharyngitis Sinobronchitis Unspecified sinusitis (chronic) [facility] Diagnosis Rhus dermatitis- Primary Contact dermatitis and other eczema due to plants (except food) [facility] noteNo assessment information availableW[facility] Work Phone: Hospital course Narrative No data available for this section [facility] Hospital Discharge instructions No data available for this section [facility] Hospital Discharge instructions Additional Instructions Follow-up with your PCP and return for any worsening of your symptoms.[facility] Work Phone: Note* KIESHA CORONA MD: SIGN, VERIFY Event Display: VL Venous US[facility]Doppler [facility] Leg [facility]DVT) [facility] No data available for this section [facility] Summary Purpose Family History No Family History Records FoundNo Family History Records Found No data available for this section No Family History Records Found No data available for this section No data available for this section No Family History Records Found Advance Directives No Advanced Directives Records Found Advance Directive Response Recorded Date/ Time Living Will No July 27, 2023 6 :22pm 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 Address: Home [address] [place] [phone] [place] Source Comments (unrecognize d section and content) In the event this informatio n is protected by the Federal Confidentiality of Alcohol and Drug Abuse Patient Records regulations: The Federal rules restrict any use of the information to criminally investigate or prosecute any alcohol or drug abuse patient.[facility] the event this information is protected by the Federal Confidentiality of Alcohol and Drug Abuse Patient Records regulations: The Federal rules restrict any use of the information to criminally investigate or prosecute any alcohol or drug abuse patient.[facility] Reason for Visit (unrecogniz ed section and content) Reason Comments Sore Throat head and chest conge stion, cough, sob x 1 week Reason Comments Rash Rash all over body x 5 days Care Teams (unrecognized sec tion and content) Oyster Worker Relationship Specialty Start Date End Date Brad Gibbons DO [address] [place] [address] PCP - General Family Medicine 02/16/20 Oyster Worker Relationship Specialty Start Date End Date Brad Gibbons DO [address] [facility] [place] [address] PCP - General Family Medicine 02/16/20 Team Status: Active Member Role Status Dates Out of [facility] Doctor Family Provider Active No Primary Care Physician Primary Care Provider Active Team Status: Inactive Member Role Status Dates Dr. Marcus Gamboa , Emergency Provider Active No Primary Care Physician Primary Care Provider Active INFORMATION SOURCE (unrecogn ized section and content) DATE CREATED AUTHOR 07/19/2023 [facility] DATE CREATED AUTHOR AUTHOR'S ORGANIZ ATION 08/02/2023 [facility] DATE CREATED AUTHOR AUTHOR'S ORGANIZ ATION 10/16/2023 [facility] ([place]) DATE CREATED AUTHOR AUTHOR'S ORGANIZ ATION 01/13/2024 [facility] Goals (unrecognized section and content) Goals may be documented in a n alternate section FOR RECORDS PERTAINING TO PATIENTS WHO ARE OR HAVE BEEN ENROLLED IN A CHEMICAL DEPENDENCY/SUBSTANCEABUSE PROGRAM, SOME INFORMATION MAY BE OMITTED. This clinical summary was aggregated from multiple sources. Caution should be exercised in using it in the provision of clinical care. This summary normalizes information from multiple sources, and as a consequence, information in this document may materially change the coding, format and clinical context of patient data. In addition, data may be omitted in some cases. CLINICAL DECISIONS SHOULD BE BASED ON THE PRIMARY CLINICAL RECORDS. [facility] [employer] [facility]. provides no warranty or guarantee of the accuracy or completeness of information in this document.
[2024-11-20 22:35] LABS: Hematocrit 36.9 % (37-47); Hemoglobin 12.8 g/dL (12.0-15.0); Immature Granulocytes Count 0.020 X10^3/uL (0.0-0.0); Mean Corp Hgb Conc 34.7 g/dL (32-36); Mean Corpuscular Volume 89.3 fL (81-99); Mean Platelet Vol. 10.6 fl (6.2-12.0); NRBC Flagged by Analyzer 0 % (0-5); Platelet Count 247 K/mm3 (150-450); RBC Distribution Width CV 11.9 % (11.6-14.6); RBC Distribution Width SD 38.5 fl (35.1-43.9); Red Blood Count 4.13 M/mm3 (4.2-5.4); White Blood Count 7.7 K/mm3 (4.4-11.0)
[2024-11-20] MEDS: Ketorolac 30 MG/ML Syringe IV (22:39)
[2024-11-20 22:49] LABS: Internal QC Validated? YES +Cl - CLEAR BKGD; Pregnancy, Serum, hCG Quali. NEGATIVE Negative; Record Kit Lot#, Serum Preg. 0000947261
--- NOTE | 2024-11-20 22:50 | RAD_ITS ---
PROCEDURE: ACUTE ABDOMEN INC CHEST 11/20/2024 REASON FOR EXAM: PAIN after using the tile scrubber. TECHNIQUE: Procedure Code: RADABDCA Modality: DX Procedure: ACUTE ABDOMEN INC CHEST FINDINGS: LUNGS: No focal airspace consolidation. PLEURAL SPACES: No pleural effusion. No pneumothorax. HEART: The heart size is normal. MEDIASTINUM: Unremarkable. PERITONEUM: No appreciable free air. Rounded pelvic calcifications bilaterally, likely phleboliths. BOWEL: Mildly prominent air-containing large-bowel loops. No evidence of bowel obstruction. BONES: No acute osseous abnormality. RAD/Acute Abdomen Inc Chest IMPRESSION: 1. Mildly prominent large bowel loops, may represent an ileus or enterocolitis . 2. No acute cardiopulmonary abnormality. Reading Location: [id number]
[2024-11-20 23:04] LABS: Lipase 33 U/L (13-75)
[2024-11-20 23:14] VITALS: BP 121/67; PULSE 58; RESP 18; O2SAT 99
[2024-11-20 23:32] LABS: AST(SGOT) 17 U/L (<=31); Alanine Aminotransfer ALT/SGPT 14 U/L (<=34); Albumin, Serum 4.2 g/dL (3.5-5.0); Alkaline Phosphatase 71 U/L (35-104); Anion Gap 11 (5-15); BUN 16 mg/dL (4-19); BUN/Creat Ratio 21.1 RATIO (10-20); Bilirubin, Direct < 0.08 mg/dL (0.00-0.30); Calcium,Total 9.6 mg/dL (7.6-11.0); Carbon Dioxide 23.8 mmol/L (21.0-32.0); Chloride 103 mmol/L (98-108); Estimated Creatinine Clearance 97.08 ml/min (50-250); Globulin 2.8 g/dL (2.2-4.2); Glucose 104 mg/dL (70-99); Potassium 4.2 mmol/L (3.3-5.1)
--- NOTE | 2024-11-20 23:49 | EX.ED.DYSGE1 ---
HPI History of Present Illness Chief Complaint: Abd Pain Informant: patient and spouse/S.O. Narrative Narrative: Patient is a 43-year-old female who reports a past medical history of a ventral hernia. She states that this evening she was cleaning the floors using a tile scrubber. She states that she was doing this for 1 to 2 hours and when she finished she noticed increasing pain in the mid abdominal region after standing up. She states she took medication at home and there was no improvement of the symptoms. She states there was no direct trauma but the pain is worse with any type of motion. She denies nausea vomiting diarrhea dysuria fevers or chills. However secondary to the persistent pain she presents for evaluation [facility] Home Medications ?Medication ?Instructions ?Recorded ?Last Taken ?Type amoxicillin 500 mg capsule 500 mg PO Q8H ##30 05/04/13 Unknown Rx vits,calcium no.78-iron 1 tab PO DAILY 05/04/13 Unknown History fumarate-folic acid 29 mg-1 mg tablet (Prenatabs FA) Allergy/AdvReac Type Severity Reaction Status Date / Time aspirin AdvReac Vomiting Verified 11/20/24 21:15 Social History Smoking Status: Former smoker ROS ROS ED Constitutional Constitutional ED: Denies chills or fever(s) ENT ENT ED: Denies sore throat Cardiovascular Cardiovascular: Denies chest pain Respiratory/Chest Respiratory/Chest: Denies cough or dyspnea Gastrointestinal Gastrointestinal: Reports abdominal pain; Denies diarrhea, nausea or vomiting Genitourinary Genitourinary ED: Denies dysuria or hematuria Musculoskeletal Musculoskeletal: Denies back pain or myalgias Integumentary Denies rash Neurologic Neurologic: Denies headache(s) Hematologic/Lymphatic Hematologic/Lymphatic: Denies easy bleeding or easy bruising EXAM Physical Exam Const Vital Signs: 11/20/24 21:15 11/20/24 23:14 11/20/24 23:52 Temperature 96.4 F L 97.8 F Temperature Source Temporal Pulse Rate 77 58 L 58 L Respiratory Rate 20 H 18 18 Blood Pressure 148/81 H 121/67 H 121/67 H Blood Pressure Mean 103 85 85 Pulse Ox 99 99 99 Oxygen Delivery Method Room Air Room Air Positive well nourished and well developed General Appearance ED: well developed; Negative for pallor HEENT HEENT Narrative: Normocephalic atraumatic Eyes PERRL and EOMs intact bilaterally General Eye ED: Negative for scleral icterus Neck supple Resp normal respiratory effort and clear to auscultation bilaterally Cardio regular rate and regular rhythm Rate: other Other Details: Heart is regular rate and rhythm without murmurs rubs or gallops Radial and carotid pulses are equal and symmetric GI non-distended GI Narrative: Abdomen is soft and nondistended with normal active bowel sound. Patient has a ventral hernia noted that is reducible in nature. There is pain with palpation at this site. No voluntary guarding or rigidity. No pulsatile mass or fluid wave. No peritoneal signs. Auscultation: normoactive bowel sounds Palpation: soft Back/Spine no CVA tenderness Extremity normal to inspection Neuro oriented x3, CN's II-XII intact bilaterally and no sensory deficits noted Sensorium / Orientation: alert Motor Exam: strength 5/5 throughout Psych mental status grossly normal Skin no rashes or lesions noted and no wounds General Skin Exam: Negative for jaundice or pallor MDM MDM MDM Narrative Medical decision making narrative: Patient arrived to the ER with stable vitals. She reported abdominal pain after physical activity and the pain was worse with motion. Differential diagnosis is for incarcerated ventral hernia versus small bowel obstruction versus atypical presentation for pancreatitis or biliary colic or potentially complication. Secondary to this basic labs were obtained with a x-ray. Lipase is normal going against pancreatitis test is negative going against complication liver enzymes are also normal going against a biliary issue. Patient's lactic acid is normal going against a incarcerated hernia or mesenteric ischemia. X-ray did not reveal any signs of perforation or obstruction. After receiving Toradol patient did have improvement of her symptoms. On reevaluation abdomen remains soft and nonsurgical with reducible ventral hernia. Based on her history of physical activity and pain with motion I feel that she most likely exacerbated her ventral hernia with potential extension but at this time there is no sign of incarceration or strangulation or perforation or small bowel obstruction so there is no need for intervention and she is otherwise safe for discharge History & Record Review Discussion w/independent historian: Patient and Significant other Lab Data Attestation: I reviewed the patient's lab results. Labs: Laboratory Results - last 24 hr 11/20/24 11/20/24 22:14 22:34 WBC 7.7 RBC 4.13 L Hgb 12.8 Hct 36.9 L MCV 89.3 MCH 31.0 MCHC 34.7 RDW Std Deviation 38.5 RDW Coeff of [place] 11.9 Plt Count 247 MPV 10.6 Immature Gran % (Auto) 0.300 Neut % (Auto) 50.6 Lymph % (Auto) 40.1 [place] % (Auto) 6.4 Eos % (Auto) 2.1 Baso % (Auto) 0.5 Absolute Neuts (auto) 3.9 Absolute Lymphs (auto) 3.08 Nucleated RBC % 0 Sodium 138 Potassium 4.2 Chloride 103 Carbon Dioxide 23.8 Anion Gap 11 BUN 16 Creatinine 0.75 Estim Creat Clear Calc 97.08 Est GFR (MDRD) Non-Af 100 BUN/Creatinine Ratio 21.1 H Glucose 104 H Lactic Acid 1.0 Calcium 9.6 Total Bilirubin 0.21 Direct Bilirubin < 0.08 AST 17 ALT 14 Alkaline Phosphatase 71 Total Protein 7.0 Albumin 4.2 Globulin 2.8 Lipase 33 Serum , Qual NEGATIVE Radiography Diagnostic Testing: Clinical Impression(s) from Imaging Studies Acute Abdomen Series 11/20/24 22:50 IMPRESSION: 1. Mildly prominent large bowel loops, may represent an ileus or enterocolitis. 2. No acute cardiopulmonary abnormality. Reading Location: [facility] Acute abdominal series with 1 view chest as interpreted by the emergency medicine physician reveals a nonspecific nonobstructive bowel gas pattern without signs of perforation. Chest x-ray component reveals no acute infiltrate or pneumothorax or pleural effusion Discharge Plan Triage Chief Complaint: Abd Pain ED Provider: Beka Lamas Dx/Rx/DC Orders Clinical Impression: Abdominal pain, Ventral hernia Instructions: Abdominal Pain, ED Hernia (Adult) Prescriptions: No Action vit,helena [id number] [Prenatabs FA] 1 TABLET tablet 1 tab PO DAILY amoxicillin 500 MG capsule 500 mg PO Q8H Qty: 30 0RF Primary Care Provider: Cameron Gibbons Referrals: Cameron Gibbons DO [Primary Care Provider] - Activity Restrictions/Additional Instructions: Your workup today does not suggest any sign of infection lack of blood flow to the intestine or sign of bowel blockage or rupture. Workup and history and exam are consistent with worsening of the ventral hernia. Please follow-up with your family doctor to discuss potential general surgery referral to discuss fixing this and use Tylenol and/or Motrin for pain control. If you develop a fever symptoms worsen or you have any further concerns please return for repeat evaluation Print Language: [place]ese Disposition Disposition: Home, Self Care Discharge Date/Time: 11/21/24 00:03
[2024-11-20 23:52] VITALS: BP 121/67; PULSE 58; RESP 18; TEMP 36.6; O2SAT 99
== END 2024-11-21 00:03 | disposition home or self-care (01) ==
PROVIDERS: Emergency Provider Emergency Medicine; PCP Family Medicine; Visit Provider Emergency Medicine
DX: K43.9 Ventral hernia without obstruction or gangrene (principal); R10.9 Unspecified abdominal pain; Z87.891 Personal history of nicotine dependence
CPT/HCPCS: 74022; 80048; 80076; 83605; 83690; 84703; 85025; 96374; 99283; A4216